=== PATIENT | male | born 1955 | race Caucasian/White ===

== ENCOUNTER 2018-01-17 19:08 | Inpatient (IN) | payer OTHER ==
[2018-01-17 19:58] LABS: ADD MAN DIFF? NO
[2018-01-17] MEDS: CEFTRIAXONE 2 GM/50 ML (PMX) 50 ML IVPB (20:01)
[2018-01-17 20:05] LABS: BASOPHILS % 0.2 % (0.0-2.0); EOSINOPHILS # 0.2 10^3/ul (0.0-0.5); EOSINOPHILS % 1.3 % (0.0-7.0); HEMATOCRIT 36.7 % (42.0-52.0); HEMOGLOBIN 12.1 g/dl (14.0-18.0); LYMPHOCYTES # 1.1 10^3/ul (0.8-2.9); MEAN CORPUSCULAR HEMOGLOBIN 30.1 pg (29.0-33.0); MEAN CORPUSCULAR VOLUME 91.3 fl (82.0-101.0); MEAN PLATELET VOLUME 8.6 fl (7.4-10.4); MONOCYTES % 8.5 % (0.0-11.0); NEUTROPHIL # 9.5 10^3/ul (1.6-7.5); NEUTROPHILS % 79.3 % (39.0-77.0); PLATELET COUNT 502 10^3/UL (140-415); RED BLOOD COUNT 4.02 10^6/ul (4.70-6.10); RED CELL DISTRIBUTION WIDTH 13.3 % (11.5-14.5)
[2018-01-17 20:05] LABS: WHITE BLOOD COUNT 12.1 10^3/ul (4.8-10.8)
[2018-01-17 20:24] LABS: ALANINE AMINOTRANSFERASE 40 IU/L (13-69); ALBUMIN 3.6 g/dl (3.3-4.9); ALKALINE PHOSPHATASE 72 IU/L (42-121); ANION GAP 12 (8-16); ASPARTATE AMINO TRANSFERASE 28 IU/L (15-46); BLOOD UREA NITROGEN 20 mg/dl (7-20); CALCIUM 8.9 mg/dl (8.4-10.2); CARBON DIOXIDE 29 mmol/L (21-31); CHLORIDE 97 mmol/L (97-110); CREATININE 0.84 mg/dl (0.61-1.24); GLUCOSE 137 mg/dl (70-220); INR 1.08; PROTIME 14.1 Sec (11.9-14.9); PT RATIO 1.1; SODIUM 133 mmol/L (135-144); TOTAL PROTEIN 7.2 g/dl (6.1-8.1)
[2018-01-17 20:25] LABS: PARTIAL THROMBOPLASTIN TIME 39.7 Sec (25.0-35.0)
[2018-01-17] MEDS: VANCOMYCIN 1 GM (PMX) 250 ML IVPB (20:45)
[2018-01-17] MEDS: ONDANSETRON 4 MG INJ IV (20:45)
[2018-01-17] MEDS: morphine 2 MG INJ IV (20:45)
[2018-01-17 20:51] LABS: LACTIC ACID 1.3 mmol/L (0.5-2.0)
[2018-01-17 21:11] LABS: ERYTHROCYTE SEDIMENTATION RATE 96 mm/Hr (0-20)
[2018-01-17] MEDS: HYDROmorphONE 1 MG/ML SYG IV (21:49)
[2018-01-17 22:28] LABS: LACTIC ACID 0.7 mmol/L (0.5-2.0)
[2018-01-17 23:05] LABS: ADD UMIC NO; UR ASCORBIC ACID NEGATIVE (NEGATIVE); UR BILIRUBIN (Dip) NEGATIVE (NEGATIVE); UR BLOOD (Dip) NEGATIVE (NEGATIVE); UR CLARITY CLEAR (CLEAR); UR COLOR YELLOW (YELLOW); UR GLUCOSE (Dip) NEGATIVE (NEGATIVE); UR KETONES (Dip) NEGATIVE (NEGATIVE); UR LEUKOCYTE ESTERASE (Dip) NEGATIVE Leu/ul (NEGATIVE); UR NITRITE (Dip) NEGATIVE (NEGATIVE); UR TOTAL PROTEIN (Dip) NEGATIVE (NEGATIVE); UR UROBILINOGEN (Dip) NEGATIVE (NEGATIVE)
[2018-01-18 06:16] LABS: LACTIC ACID 1.6 mmol/L (0.5-2.0)
[2018-01-18] MEDS ORDERED: VANCOMYCIN 750 MG in DEXTROSE 5% 150 ML IVPB (12:30)
[2018-01-18] MEDS: CEFTRIAXONE 1 GM/50 ML (PMX) 50 ML IVPB (12:48)
[2018-01-18] MEDS: CEFTRIAXONE 1 GM INJ IM (12:48)
[2018-01-18] MEDS: VANCOMYCIN 750 MG in SOD CHLORIDE 0.9% 150 ML IVPB (13:48)
[2018-01-18] MEDS: PROPOFOL 100 ML IV (16:00)
[2018-01-18] MEDS: LIDOCAINE 1% (MDV) 10 ML INJ INJ (16:45)
[2018-01-18 17:10] LABS: SYN FLD PMN % 94.3 % (0.0-25.0); SYN FLD WBC 48492 /cmm (0-150)
[2018-01-18] MEDS: KETOROLAC 15 MG INJ IV (17:16)
[2018-01-18] MEDS: FENTAnyl 50 MCG/ML VIAL IV (17:16)
[2018-01-18 17:37] LABS: FLUID GLUCOSE < 20 mg/dl; FLUID TOTAL PROTEIN 5.1 g/dl; FLUID TYPE FLUID
[2018-01-18] MEDS: OXYCODONE/ACETAMINOPHEN (5/325) TAB PO (17:54)
[2018-01-18 18:03] LABS: SYN FLD MN % 5.7 &
[2018-01-18 18:04] LABS: SYN FLD CLARITY CLOUDY; SYN FLD CRYSTALS NO CRYSTALS SEEN (None seen)
[2018-01-18 18:04] LABS: SYN FLD SOURCE LEFT KNEE
[2018-01-18 18:43] LABS: SYN FLD COLOR RED
[2018-01-18] MEDS ORDERED: ONDANSETRON 4 MG INJ IV (19:30)
[2018-01-18] MEDS ORDERED: VANCOMYCIN IV PER PHARMACY XX (19:30)
[2018-01-18] MEDS ORDERED: KETOROLAC 15 MG INJ IV (19:30)
[2018-01-18] MEDS ORDERED: NACL 0.9% 3 ML SYG IV (19:30)
[2018-01-18] MEDS: HYDROCODONE/APAP (5/325) TAB PO (21:49)
[2018-01-18] MEDS: SOD CHLORIDE 0.9% 1,000 ML IV (21:55)
[2018-01-19] MEDS: VANCOMYCIN 1.5 GM in SOD CHLORIDE 0.9% 250 ML IVPB ×3 (00:10→23:58)
[2018-01-19] MEDS: morphine 2 MG INJ IV ×2 (03:11→08:49)
[2018-01-19] MEDS ORDERED: ASPIRIN 81 MG TAB PO (04:30)
[2018-01-19] MEDS: HYDROCODONE/APAP (5/325) TAB PO ×3 (05:26→17:48)
[2018-01-19] MEDS: SOD CHLORIDE 0.9% 1,000 ML IV ×2 (05:30→16:26)
[2018-01-19 05:52] LABS: ADD MAN DIFF? NO
[2018-01-19 06:02] LABS: BASOPHILS % 0.2 % (0.0-2.0); EOSINOPHILS # 0.2 10^3/ul (0.0-0.5); EOSINOPHILS % 1.7 % (0.0-7.0); HEMATOCRIT 37.3 % (42.0-52.0); LYMPHOCYTES # 1.3 10^3/ul (0.8-2.9); LYMPHOCYTES % 12.4 % (15.0-51.0); MEAN CORPUSCULAR HEMOGLOBIN 29.4 pg (29.0-33.0); MEAN CORPUSCULAR HGB CONC 32.2 g/dl (32.0-37.0); MEAN CORPUSCULAR VOLUME 91.4 fl (82.0-101.0); MEAN PLATELET VOLUME 8.6 fl (7.4-10.4); MONOCYTES % 9.2 % (0.0-11.0); NEUTROPHIL # 8.1 10^3/ul (1.6-7.5); NEUTROPHILS % 75.4 % (39.0-77.0); PLATELET COUNT 542 10^3/UL (140-415); RED BLOOD COUNT 4.08 10^6/ul (4.70-6.10); RED CELL DISTRIBUTION WIDTH 13.2 % (11.5-14.5)
[2018-01-19 06:02] LABS: WHITE BLOOD COUNT 10.7 10^3/ul (4.8-10.8)
[2018-01-19 06:25] LABS: ANION GAP 10 (8-16); BLOOD UREA NITROGEN 18 mg/dl (7-20); CALCIUM 8.7 mg/dl (8.4-10.2); CARBON DIOXIDE 29 mmol/L (21-31); CHLORIDE 104 mmol/L (97-110); CREATININE 0.76 mg/dl (0.61-1.24); GLUCOSE 94 mg/dl (70-220); MAGNESIUM 2.2 mg/dl (1.7-2.5); PHOSPHORUS 4.3 mg/dl (2.5-4.9); POTASSIUM 4.7 mmol/L (3.5-5.1); SODIUM 138 mmol/L (135-144)
[2018-01-19 07:47] LABS: HEMOGLOBIN A1C 5.9 % (0-5.9)
[2018-01-19] MEDS: ASPIRIN 81 MG TAB PO (09:48)
[2018-01-19] MEDS: MELOXICAM 15 MG TAB PO (09:48)
[2018-01-19] MEDS: ENOXAPARIN 40 MG/0.4 ML SYG SC (09:49)
[2018-01-19] MEDS: DOCUSATE SODIUM 100 MG CAP PO (11:31)
[2018-01-19] MEDS: MAGNESIUM HYDROXIDE 30ML CUP PO (18:40)
[2018-01-20] MEDS: SOD CHLORIDE 0.9% 1,000 ML IV ×3 (01:30→21:30)
[2018-01-20] MEDS: HYDROCODONE/APAP (5/325) TAB PO ×2 (06:05→19:44)
[2018-01-20] MEDS: MELOXICAM 15 MG TAB PO (08:32)
[2018-01-20] MEDS: ASPIRIN 81 MG TAB PO (08:32)
[2018-01-20] MEDS: ENOXAPARIN 40 MG/0.4 ML SYG SC (08:33)
[2018-01-20] MEDS: MAGNESIUM HYDROXIDE 30ML CUP PO (08:39)
[2018-01-20] MEDS: morphine LIQ (10 MG/5 ML) CUP PO ×2 (08:39→15:29)
[2018-01-20 11:53] LABS: VANCOMYCIN,TROUGH 8.8 ug/ml (10.0-20.0)
[2018-01-20] MEDS: VANCOMYCIN 1.5 GM in SOD CHLORIDE 0.9% 250 ML IVPB (12:39)
[2018-01-20] MEDS: POLYETHYLENE GLYCOL 17 GM PACKET PO (12:52)
[2018-01-20] MEDS: SENNA TAB PO ×2 (12:52→22:08)
[2018-01-20] MEDS: DOCUSATE SODIUM 100 MG CAP PO ×2 (12:52→22:04)
[2018-01-20] MEDS: SOD CHLORIDE 0.9% 100 ML (17:00)
[2018-01-20] MEDS: LIDOCAINE 1% (MPF) 5 ML VIAL SC (18:15)
[2018-01-20] MEDS: VANCOMYCIN 1 GM 250 ML IVPB (22:04)
[2018-01-21] MEDS: VANCOMYCIN 1 GM 250 ML IVPB ×2 (05:11→12:58)
[2018-01-21 05:57] LABS: BLOOD UREA NITROGEN 15 mg/dl (7-20)
[2018-01-21 05:57] LABS: CREATININE 0.66 mg/dl (0.61-1.24)
[2018-01-21] MEDS: HYDROCODONE/APAP (5/325) TAB PO ×2 (06:12→20:33)
[2018-01-21] MEDS: SOD CHLORIDE 0.9% 1,000 ML IV ×2 (07:30→12:58)
[2018-01-21] MEDS: MELOXICAM 15 MG TAB PO (09:49)
[2018-01-21] MEDS: SENNA TAB PO ×2 (09:49→20:33)
[2018-01-21] MEDS: ASPIRIN 81 MG TAB PO (09:49)
[2018-01-21] MEDS: POLYETHYLENE GLYCOL 17 GM PACKET PO (09:49)
[2018-01-21] MEDS: DOCUSATE SODIUM 100 MG CAP PO ×2 (09:49→20:33)
[2018-01-21] MEDS: ENOXAPARIN 40 MG/0.4 ML SYG SC (09:50)
[2018-01-21] MEDS: CEFTRIAXONE 1 GM/50 ML (PMX) 50 ML IVPB (15:20)
[2018-01-22] MEDS: SOD CHLORIDE 0.9% 1,000 ML IV (03:23)
[2018-01-22] MEDS: ASPIRIN 81 MG TAB PO (08:31)
[2018-01-22] MEDS: SENNA TAB PO ×2 (08:31→20:23)
[2018-01-22] MEDS: DOCUSATE SODIUM 100 MG CAP PO ×2 (08:31→20:22)
[2018-01-22] MEDS: POLYETHYLENE GLYCOL 17 GM PACKET PO (08:31)
[2018-01-22] MEDS: ENOXAPARIN 40 MG/0.4 ML SYG SC (08:31)
[2018-01-22] MEDS: MELOXICAM 15 MG TAB PO (08:31)
[2018-01-22] MEDS: HYDROCODONE/APAP (5/325) TAB PO (08:34)
[2018-01-22] MEDS: morphine LIQ (10 MG/5 ML) CUP PO (13:59)
[2018-01-22] MEDS: CEFTRIAXONE 1 GM/50 ML (PMX) 50 ML IVPB (14:00)
[2018-01-23] MEDS: HYDROCODONE/APAP (5/325) TAB PO ×4 (02:59→23:28)
[2018-01-23] MEDS: MELOXICAM 15 MG TAB PO (08:16)
[2018-01-23] MEDS: DOCUSATE SODIUM 100 MG CAP PO ×2 (08:16→20:37)
[2018-01-23] MEDS: SENNA TAB PO ×2 (08:16→20:37)
[2018-01-23] MEDS: ASPIRIN 81 MG TAB PO (08:16)
[2018-01-23] MEDS: POLYETHYLENE GLYCOL 17 GM PACKET PO (08:16)
[2018-01-23] MEDS: ENOXAPARIN 40 MG/0.4 ML SYG SC (08:17)
[2018-01-23] MEDS: CEFTRIAXONE 2 GM/50 ML (PMX) 100 ML IVPB (15:23)
[2018-01-24] MEDS: MELOXICAM 15 MG TAB PO (08:31)
[2018-01-24] MEDS: ENOXAPARIN 40 MG/0.4 ML SYG SC (08:31)
[2018-01-24] MEDS: DOCUSATE SODIUM 100 MG CAP PO ×2 (08:31→20:20)
[2018-01-24] MEDS: SENNA TAB PO ×2 (08:31→20:21)
[2018-01-24] MEDS: ASPIRIN 81 MG TAB PO (08:31)
[2018-01-24] MEDS: HYDROCODONE/APAP (5/325) TAB PO ×2 (08:32→20:20)
[2018-01-24] MEDS: POLYETHYLENE GLYCOL 17 GM PACKET PO (08:32)
[2018-01-24] MEDS: morphine LIQ (10 MG/5 ML) CUP PO (12:23)
[2018-01-24] MEDS: CEFTRIAXONE 2 GM/50 ML (PMX) 100 ML IVPB (14:07)
[2018-01-25] MEDS: HYDROCODONE/APAP (5/325) TAB PO ×3 (07:45→21:14)
[2018-01-25] MEDS: ASPIRIN 81 MG TAB PO (08:03)
[2018-01-25] MEDS: POLYETHYLENE GLYCOL 17 GM PACKET PO (08:03)
[2018-01-25] MEDS: MELOXICAM 15 MG TAB PO (08:03)
[2018-01-25] MEDS: SENNA TAB PO ×2 (08:03→21:14)
[2018-01-25] MEDS: DOCUSATE SODIUM 100 MG CAP PO ×2 (08:04→21:00)
[2018-01-25] MEDS: ENOXAPARIN 40 MG/0.4 ML SYG SC (08:04)
[2018-01-25] MEDS: CEFTRIAXONE 2 GM/50 ML (PMX) 100 ML IVPB (14:47)
[2018-01-26] MEDS: HYDROCODONE/APAP (5/325) TAB PO ×3 (03:45→20:17)
[2018-01-26] MEDS: ASPIRIN 81 MG TAB PO (08:30)
[2018-01-26] MEDS: SENNA TAB PO ×2 (08:30→20:17)
[2018-01-26] MEDS: DOCUSATE SODIUM 100 MG CAP PO ×2 (08:30→20:17)
[2018-01-26] MEDS: POLYETHYLENE GLYCOL 17 GM PACKET PO (08:30)
[2018-01-26] MEDS: MELOXICAM 15 MG TAB PO (08:30)
[2018-01-26] MEDS: ENOXAPARIN 40 MG/0.4 ML SYG SC (08:32)
[2018-01-26] MEDS: CEFTRIAXONE 2 GM/50 ML (PMX) 100 ML IVPB (14:12)
[2018-01-27] MEDS: DOCUSATE SODIUM 100 MG CAP PO ×2 (09:00→21:00)
[2018-01-27] MEDS: ASPIRIN 81 MG TAB PO (09:42)
[2018-01-27] MEDS: POLYETHYLENE GLYCOL 17 GM PACKET PO (09:42)
[2018-01-27] MEDS: SENNA TAB PO ×2 (09:42→21:00)
[2018-01-27] MEDS: MELOXICAM 15 MG TAB PO (09:42)
[2018-01-27] MEDS: ENOXAPARIN 40 MG/0.4 ML SYG SC (09:44)
[2018-01-27] MEDS: CEFTRIAXONE 2 GM/50 ML (PMX) 100 ML IVPB (16:26)
[2018-01-28] MEDS: HYDROCODONE/APAP (5/325) TAB PO ×2 (02:53→15:05)
[2018-01-28] MEDS: POLYETHYLENE GLYCOL 17 GM PACKET PO ×2 (09:00→09:24)
[2018-01-28] MEDS: SENNA TAB PO ×3 (09:00→20:18)
[2018-01-28] MEDS: DOCUSATE SODIUM 100 MG CAP PO ×3 (09:00→20:18)
[2018-01-28] MEDS: MELOXICAM 15 MG TAB PO (09:25)
[2018-01-28] MEDS: ASPIRIN 81 MG TAB PO (09:25)
[2018-01-28] MEDS: ENOXAPARIN 40 MG/0.4 ML SYG SC (09:26)
[2018-01-28] MEDS: CEFTRIAXONE 2 GM/50 ML (PMX) 100 ML IVPB (15:05)
[2018-01-29] MEDS: HYDROCODONE/APAP (5/325) TAB PO ×2 (00:20→16:32)
[2018-01-29] MEDS: SENNA TAB PO ×2 (09:00→20:40)
[2018-01-29] MEDS: POLYETHYLENE GLYCOL 17 GM PACKET PO (09:01)
[2018-01-29] MEDS: ASPIRIN 81 MG TAB PO (09:01)
[2018-01-29] MEDS: DOCUSATE SODIUM 100 MG CAP PO ×2 (09:01→20:41)
[2018-01-29] MEDS: ENOXAPARIN 40 MG/0.4 ML SYG SC (09:01)
[2018-01-29] MEDS: MELOXICAM 15 MG TAB PO (09:01)
[2018-01-29] MEDS: CEFTRIAXONE 2 GM/50 ML (PMX) 100 ML IVPB (15:31)
[2018-01-30 05:31] LABS: ADD MAN DIFF? NO
[2018-01-30 05:46] LABS: WHITE BLOOD COUNT 9.5 10^3/ul (4.8-10.8)
[2018-01-30 05:46] LABS: BASOPHIL # 0.1 10^3/ul (0.0-0.1); BASOPHILS % 0.5 % (0.0-2.0); EOSINOPHILS # 0.3 10^3/ul (0.0-0.5); EOSINOPHILS % 3.2 % (0.0-7.0); HEMATOCRIT 38.2 % (42.0-52.0); HEMOGLOBIN 12.1 g/dl (14.0-18.0); LYMPHOCYTES # 1.6 10^3/ul (0.8-2.9); LYMPHOCYTES % 16.7 % (15.0-51.0); MEAN CORPUSCULAR HEMOGLOBIN 28.9 pg (29.0-33.0); MEAN CORPUSCULAR HGB CONC 31.7 g/dl (32.0-37.0); MEAN CORPUSCULAR VOLUME 91.2 fl (82.0-101.0); MEAN PLATELET VOLUME 8.9 fl (7.4-10.4); MONOCYTE # 1.1 10^3/ul (0.3-0.9); NEUTROPHIL # 6.3 10^3/ul (1.6-7.5); NEUTROPHILS % 67.1 % (39.0-77.0); PLATELET COUNT 368 10^3/UL (140-415); RED BLOOD COUNT 4.19 10^6/ul (4.70-6.10); RED CELL DISTRIBUTION WIDTH 13.1 % (11.5-14.5)
[2018-01-30 06:19] LABS: ANION GAP 10 (8-16); BLOOD UREA NITROGEN 13 mg/dl (7-20); CALCIUM 9.2 mg/dl (8.4-10.2); CARBON DIOXIDE 31 mmol/L (21-31); CHLORIDE 99 mmol/L (97-110); CREATININE 0.68 mg/dl (0.61-1.24); GLUCOSE 100 mg/dl (70-220); PHOSPHORUS 3.9 mg/dl (2.5-4.9); POTASSIUM 4.4 mmol/L (3.5-5.1); SODIUM 136 mmol/L (135-144)
[2018-01-30] MEDS: POLYETHYLENE GLYCOL 17 GM PACKET PO (08:31)
[2018-01-30] MEDS: DOCUSATE SODIUM 100 MG CAP PO ×2 (08:31→20:58)
[2018-01-30] MEDS: MELOXICAM 15 MG TAB PO (08:31)
[2018-01-30] MEDS: ASPIRIN 81 MG TAB PO (08:31)
[2018-01-30] MEDS: SENNA TAB PO ×2 (08:31→20:58)
[2018-01-30] MEDS: ENOXAPARIN 40 MG/0.4 ML SYG SC (08:32)
[2018-01-30] MEDS: HYDROCODONE/APAP (5/325) TAB PO (15:08)
[2018-01-30] MEDS: CEFTRIAXONE 2 GM/50 ML (PMX) 100 ML IVPB (15:09)
[2018-01-31 06:00] LABS: ADD MAN DIFF? NO
[2018-01-31 06:04] LABS: WHITE BLOOD COUNT 9.9 10^3/ul (4.8-10.8)
[2018-01-31 06:04] LABS: BASOPHIL # 0.1 10^3/ul (0.0-0.1); BASOPHILS % 0.6 % (0.0-2.0); EOSINOPHILS # 0.4 10^3/ul (0.0-0.5); EOSINOPHILS % 3.6 % (0.0-7.0); HEMATOCRIT 37.3 % (42.0-52.0); HEMOGLOBIN 12.2 g/dl (14.0-18.0); LYMPHOCYTES # 1.8 10^3/ul (0.8-2.9); LYMPHOCYTES % 17.8 % (15.0-51.0); MEAN CORPUSCULAR HGB CONC 32.7 g/dl (32.0-37.0); MEAN CORPUSCULAR VOLUME 91.6 fl (82.0-101.0); MEAN PLATELET VOLUME 9.3 fl (7.4-10.4); MONOCYTE # 1.1 10^3/ul (0.3-0.9); MONOCYTES % 11.2 % (0.0-11.0); NEUTROPHIL # 6.5 10^3/ul (1.6-7.5); NEUTROPHILS % 66.3 % (39.0-77.0); PLATELET COUNT 382 10^3/UL (140-415); RED BLOOD COUNT 4.07 10^6/ul (4.70-6.10)
[2018-01-31] MEDS: HYDROCODONE/APAP (5/325) TAB PO (06:18)
[2018-01-31 06:33] LABS: ANION GAP 12 (8-16); BLOOD UREA NITROGEN 16 mg/dl (7-20); CARBON DIOXIDE 28 mmol/L (21-31); CHLORIDE 100 mmol/L (97-110); CREATININE 0.63 mg/dl (0.61-1.24); GLUCOSE 95 mg/dl (70-220); PHOSPHORUS 3.6 mg/dl (2.5-4.9); POTASSIUM 4.5 mmol/L (3.5-5.1); SODIUM 135 mmol/L (135-144)
[2018-01-31] MEDS: DOCUSATE SODIUM 100 MG CAP PO ×2 (09:06→20:00)
[2018-01-31] MEDS: POLYETHYLENE GLYCOL 17 GM PACKET PO (09:06)
[2018-01-31] MEDS: MELOXICAM 15 MG TAB PO (09:06)
[2018-01-31] MEDS: ASPIRIN 81 MG TAB PO (09:06)
[2018-01-31] MEDS: SENNA TAB PO ×2 (09:06→20:00)
[2018-01-31] MEDS: ENOXAPARIN 40 MG/0.4 ML SYG SC (09:07)
[2018-01-31] MEDS: CEFTRIAXONE 2 GM/50 ML (PMX) 100 ML IVPB (15:55)
[2018-02-01] MEDS: DOCUSATE SODIUM 100 MG CAP PO ×2 (08:48→20:32)
[2018-02-01] MEDS: ASPIRIN 81 MG TAB PO (08:48)
[2018-02-01] MEDS: SENNA TAB PO ×2 (08:48→20:32)
[2018-02-01] MEDS: MELOXICAM 15 MG TAB PO (08:49)
[2018-02-01] MEDS: ENOXAPARIN 40 MG/0.4 ML SYG SC (08:49)
[2018-02-01] MEDS: POLYETHYLENE GLYCOL 17 GM PACKET PO (08:49)
[2018-02-01] MEDS: CEFTRIAXONE 2 GM/50 ML (PMX) 100 ML IVPB (14:29)
[2018-02-01] MEDS: HYDROCODONE/APAP (5/325) TAB PO (19:48)
[2018-02-01] MEDS: morphine LIQ (10 MG/5 ML) CUP PO (22:50)
[2018-02-02] MEDS: POLYETHYLENE GLYCOL 17 GM PACKET PO (09:11)
[2018-02-02] MEDS: DOCUSATE SODIUM 100 MG CAP PO ×2 (09:11→21:29)
[2018-02-02] MEDS: ENOXAPARIN 40 MG/0.4 ML SYG SC (09:11)
[2018-02-02] MEDS: MELOXICAM 15 MG TAB PO (09:11)
[2018-02-02] MEDS: SENNA TAB PO ×2 (09:11→21:28)
[2018-02-02] MEDS: ASPIRIN 81 MG TAB PO (09:11)
[2018-02-02] MEDS: CEFTRIAXONE 2 GM/50 ML (PMX) 100 ML IVPB (15:38)
[2018-02-02] MEDS: HYDROCODONE/APAP (5/325) TAB PO (15:39)
[2018-02-02] MEDS: morphine LIQ (10 MG/5 ML) CUP PO ×2 (16:01→20:22)
[2018-02-03] MEDS: HYDROCODONE/APAP (5/325) TAB PO ×2 (02:21→21:20)
[2018-02-03] MEDS: MELOXICAM 15 MG TAB PO (08:34)
[2018-02-03] MEDS: DOCUSATE SODIUM 100 MG CAP PO ×2 (08:34→21:13)
[2018-02-03] MEDS: SENNA TAB PO ×2 (08:34→21:12)
[2018-02-03] MEDS: ASPIRIN 81 MG TAB PO (08:34)
[2018-02-03] MEDS: POLYETHYLENE GLYCOL 17 GM PACKET PO (08:34)
[2018-02-03] MEDS: ENOXAPARIN 40 MG/0.4 ML SYG SC (08:35)
[2018-02-03] MEDS: CEFTRIAXONE 2 GM/50 ML (PMX) 100 ML IVPB (15:29)
[2018-02-04] MEDS: MELOXICAM 15 MG TAB PO (08:48)
[2018-02-04] MEDS: SENNA TAB PO ×2 (08:48→21:06)
[2018-02-04] MEDS: POLYETHYLENE GLYCOL 17 GM PACKET PO (08:48)
[2018-02-04] MEDS: ASPIRIN 81 MG TAB PO (08:48)
[2018-02-04] MEDS: DOCUSATE SODIUM 100 MG CAP PO ×2 (08:48→21:06)
[2018-02-04] MEDS: ENOXAPARIN 40 MG/0.4 ML SYG SC (08:49)
[2018-02-04] MEDS: CEFTRIAXONE 2 GM/50 ML (PMX) 100 ML IVPB (16:17)
[2018-02-05] MEDS: ENOXAPARIN 40 MG/0.4 ML SYG SC (08:29)
[2018-02-05] MEDS: SENNA TAB PO ×2 (08:32→21:00)
[2018-02-05] MEDS: MELOXICAM 15 MG TAB PO (08:32)
[2018-02-05] MEDS: POLYETHYLENE GLYCOL 17 GM PACKET PO (08:32)
[2018-02-05] MEDS: DOCUSATE SODIUM 100 MG CAP PO ×2 (08:33→21:00)
[2018-02-05] MEDS: ASPIRIN 81 MG TAB PO (08:33)
[2018-02-05] MEDS: CEFTRIAXONE 2 GM/50 ML (PMX) 100 ML IVPB (15:11)
[2018-02-06] MEDS: MELOXICAM 15 MG TAB PO (08:13)
[2018-02-06] MEDS: DOCUSATE SODIUM 100 MG CAP PO ×2 (08:13→20:47)
[2018-02-06] MEDS: ASPIRIN 81 MG TAB PO (08:13)
[2018-02-06] MEDS: SENNA TAB PO ×2 (08:13→20:47)
[2018-02-06] MEDS: POLYETHYLENE GLYCOL 17 GM PACKET PO (08:14)
[2018-02-06] MEDS: ENOXAPARIN 40 MG/0.4 ML SYG SC (08:14)
[2018-02-06] MEDS: CEFTRIAXONE 2 GM/50 ML (PMX) 100 ML IVPB (14:42)
[2018-02-07 06:42] LABS: ADD MAN DIFF? NO
[2018-02-07 06:45] LABS: WHITE BLOOD COUNT 7.1 10^3/ul (4.8-10.8)
[2018-02-07 06:45] LABS: BASOPHIL # 0.1 10^3/ul (0.0-0.1); BASOPHILS % 0.7 % (0.0-2.0); EOSINOPHILS # 0.4 10^3/ul (0.0-0.5); EOSINOPHILS % 6.2 % (0.0-7.0); HEMATOCRIT 33.6 % (42.0-52.0); HEMOGLOBIN 10.9 g/dl (14.0-18.0); LYMPHOCYTES # 1.2 10^3/ul (0.8-2.9); LYMPHOCYTES % 16.2 % (15.0-51.0); MEAN CORPUSCULAR HEMOGLOBIN 29.5 pg (29.0-33.0); MEAN CORPUSCULAR HGB CONC 32.4 g/dl (32.0-37.0); MEAN CORPUSCULAR VOLUME 91.1 fl (82.0-101.0); MONOCYTE # 1.3 10^3/ul (0.3-0.9); MONOCYTES % 18.2 % (0.0-11.0); NEUTROPHIL # 4.2 10^3/ul (1.6-7.5); NEUTROPHILS % 58.6 % (39.0-77.0); PLATELET COUNT 343 10^3/UL (140-415); RED BLOOD COUNT 3.69 10^6/ul (4.70-6.10); RED CELL DISTRIBUTION WIDTH 13.1 % (11.5-14.5)
[2018-02-07 07:09] LABS: ANION GAP 10 (8-16); BLOOD UREA NITROGEN 11 mg/dl (7-20); CALCIUM 9.1 mg/dl (8.4-10.2); CARBON DIOXIDE 29 mmol/L (21-31); CHLORIDE 99 mmol/L (97-110); CREATININE 0.57 mg/dl (0.61-1.24); GLUCOSE 95 mg/dl (70-220); MAGNESIUM 1.9 mg/dl (1.7-2.5); PHOSPHORUS 3.9 mg/dl (2.5-4.9); POTASSIUM 4.6 mmol/L (3.5-5.1); SODIUM 133 mmol/L (135-144)
[2018-02-07] MEDS: POLYETHYLENE GLYCOL 17 GM PACKET PO (08:53)
[2018-02-07] MEDS: MELOXICAM 15 MG TAB PO (08:53)
[2018-02-07] MEDS: DOCUSATE SODIUM 100 MG CAP PO ×2 (08:53→20:31)
[2018-02-07] MEDS: ASPIRIN 81 MG TAB PO (08:53)
[2018-02-07] MEDS: SENNA TAB PO ×2 (08:53→20:31)
[2018-02-07] MEDS: ENOXAPARIN 40 MG/0.4 ML SYG SC (08:57)
[2018-02-07] MEDS: HYDROCODONE/APAP (5/325) TAB PO ×2 (10:23→20:31)
[2018-02-07] MEDS: CEFTRIAXONE 2 GM/50 ML (PMX) 100 ML IVPB (15:27)
[2018-02-08 05:36] LABS: ADD MAN DIFF? NO
[2018-02-08 05:43] LABS: BASOPHIL # 0.1 10^3/ul (0.0-0.1); BASOPHILS % 0.8 % (0.0-2.0); EOSINOPHILS # 0.5 10^3/ul (0.0-0.5); EOSINOPHILS % 8.2 % (0.0-7.0); HEMATOCRIT 33.7 % (42.0-52.0); HEMOGLOBIN 10.8 g/dl (14.0-18.0); LYMPHOCYTES % 16.6 % (15.0-51.0); MEAN CORPUSCULAR HEMOGLOBIN 28.7 pg (29.0-33.0); MEAN CORPUSCULAR VOLUME 89.6 fl (82.0-101.0); MEAN PLATELET VOLUME 8.9 fl (7.4-10.4); MONOCYTE # 1.3 10^3/ul (0.3-0.9); NEUTROPHIL # 3.3 10^3/ul (1.6-7.5); NEUTROPHILS % 53.2 % (39.0-77.0); PLATELET COUNT 338 10^3/UL (140-415); RED BLOOD COUNT 3.76 10^6/ul (4.70-6.10); RED CELL DISTRIBUTION WIDTH 13.2 % (11.5-14.5)
[2018-02-08 05:43] LABS: WHITE BLOOD COUNT 6.1 10^3/ul (4.8-10.8)
[2018-02-08 06:20] LABS: ALBUMIN 3.6 g/dl (3.3-4.9); ANION GAP 13 (8-16); BLOOD UREA NITROGEN 14 mg/dl (7-20); CALCIUM 9.2 mg/dl (8.4-10.2); CARBON DIOXIDE 29 mmol/L (21-31); CHLORIDE 97 mmol/L (97-110); CREATININE 0.66 mg/dl (0.61-1.24); GLUCOSE 96 mg/dl (70-220); MAGNESIUM 1.9 mg/dl (1.7-2.5); PHOSPHORUS 4.1 mg/dl (2.5-4.9); POTASSIUM 4.5 mmol/L (3.5-5.1); SODIUM 134 mmol/L (135-144)
[2018-02-08] MEDS: POLYETHYLENE GLYCOL 17 GM PACKET PO (08:49)
[2018-02-08] MEDS: SENNA TAB PO ×2 (08:49→20:30)
[2018-02-08] MEDS: ASPIRIN 81 MG TAB PO (08:49)
[2018-02-08] MEDS: MELOXICAM 15 MG TAB PO (08:49)
[2018-02-08] MEDS: HYDROCODONE/APAP (5/325) TAB PO ×2 (08:50→20:31)
[2018-02-08] MEDS: ENOXAPARIN 40 MG/0.4 ML SYG SC (08:52)
[2018-02-08] MEDS: DOCUSATE SODIUM 100 MG CAP PO ×2 (08:53→20:31)
[2018-02-08] MEDS: CEFTRIAXONE 2 GM/50 ML (PMX) 100 ML IVPB (14:12)
[2018-02-08] MEDS: morphine LIQ (10 MG/5 ML) CUP PO (21:40)
[2018-02-09] MEDS: morphine LIQ (10 MG/5 ML) CUP PO ×2 (02:01→06:16)
[2018-02-09] MEDS: HYDROCODONE/APAP (5/325) TAB PO ×2 (05:03→22:54)
[2018-02-09 06:48] LABS: ADD MAN DIFF? NO
[2018-02-09 06:51] LABS: WHITE BLOOD COUNT 6.1 10^3/ul (4.8-10.8)
[2018-02-09 06:51] LABS: BASOPHIL # 0.1 10^3/ul (0.0-0.1); BASOPHILS % 0.8 % (0.0-2.0); EOSINOPHILS # 0.5 10^3/ul (0.0-0.5); EOSINOPHILS % 8.3 % (0.0-7.0); HEMATOCRIT 33.3 % (42.0-52.0); HEMOGLOBIN 10.7 g/dl (14.0-18.0); LYMPHOCYTES # 1.2 10^3/ul (0.8-2.9); LYMPHOCYTES % 19.8 % (15.0-51.0); MEAN CORPUSCULAR HEMOGLOBIN 28.8 pg (29.0-33.0); MEAN CORPUSCULAR HGB CONC 32.1 g/dl (32.0-37.0); MEAN CORPUSCULAR VOLUME 89.5 fl (82.0-101.0); MEAN PLATELET VOLUME 9.3 fl (7.4-10.4); MONOCYTE # 1.3 10^3/ul (0.3-0.9); MONOCYTES % 21.8 % (0.0-11.0); PLATELET COUNT 348 10^3/UL (140-415); RED BLOOD COUNT 3.72 10^6/ul (4.70-6.10); RED CELL DISTRIBUTION WIDTH 13.2 % (11.5-14.5)
[2018-02-09 07:19] LABS: ALBUMIN 3.7 g/dl (3.3-4.9); ANION GAP 9 (8-16); BLOOD UREA NITROGEN 15 mg/dl (7-20); CALCIUM 9.2 mg/dl (8.4-10.2); CARBON DIOXIDE 31 mmol/L (21-31); CHLORIDE 100 mmol/L (97-110); CREATININE 0.71 mg/dl (0.61-1.24); GLUCOSE 92 mg/dl (70-220); MAGNESIUM 1.9 mg/dl (1.7-2.5); PHOSPHORUS 4.2 mg/dl (2.5-4.9); POTASSIUM 4.4 mmol/L (3.5-5.1); SODIUM 136 mmol/L (135-144)
[2018-02-09] MEDS: DOCUSATE SODIUM 100 MG CAP PO ×2 (08:58→20:45)
[2018-02-09] MEDS: MELOXICAM 15 MG TAB PO (08:59)
[2018-02-09] MEDS: ASPIRIN 81 MG TAB PO (08:59)
[2018-02-09] MEDS: SENNA TAB PO ×2 (08:59→20:45)
[2018-02-09] MEDS: ENOXAPARIN 40 MG/0.4 ML SYG SC (09:00)
[2018-02-09] MEDS: POLYETHYLENE GLYCOL 17 GM PACKET PO (09:08)
[2018-02-09] MEDS: CEFTRIAXONE 2 GM/50 ML (PMX) 100 ML IVPB (15:44)
[2018-02-10 05:23] LABS: ADD MAN DIFF? NO
[2018-02-10 05:25] LABS: WHITE BLOOD COUNT 6.3 10^3/ul (4.8-10.8)
[2018-02-10 05:25] LABS: BASOPHILS % 0.6 % (0.0-2.0); EOSINOPHILS # 0.5 10^3/ul (0.0-0.5); EOSINOPHILS % 7.8 % (0.0-7.0); HEMATOCRIT 31.9 % (42.0-52.0); HEMOGLOBIN 10.3 g/dl (14.0-18.0); LYMPHOCYTES # 1.3 10^3/ul (0.8-2.9); LYMPHOCYTES % 19.8 % (15.0-51.0); MEAN CORPUSCULAR HEMOGLOBIN 29.4 pg (29.0-33.0); MEAN CORPUSCULAR HGB CONC 32.3 g/dl (32.0-37.0); MEAN CORPUSCULAR VOLUME 91.1 fl (82.0-101.0); MEAN PLATELET VOLUME 8.7 fl (7.4-10.4); MONOCYTE # 1.3 10^3/ul (0.3-0.9); MONOCYTES % 20.6 % (0.0-11.0); NEUTROPHIL # 3.2 10^3/ul (1.6-7.5); NEUTROPHILS % 50.9 % (39.0-77.0); PLATELET COUNT 328 10^3/UL (140-415); RED CELL DISTRIBUTION WIDTH 13.3 % (11.5-14.5)
[2018-02-10 05:54] LABS: ALBUMIN 3.4 g/dl (3.3-4.9); ANION GAP 11 (8-16); BLOOD UREA NITROGEN 16 mg/dl (7-20); CALCIUM 8.9 mg/dl (8.4-10.2); CARBON DIOXIDE 30 mmol/L (21-31); CHLORIDE 100 mmol/L (97-110); CREATININE 0.68 mg/dl (0.61-1.24); GLUCOSE 104 mg/dl (70-220); PHOSPHORUS 4.2 mg/dl (2.5-4.9); POTASSIUM 4.5 mmol/L (3.5-5.1); SODIUM 136 mmol/L (135-144)
[2018-02-10] MEDS: MELOXICAM 15 MG TAB PO (08:39)
[2018-02-10] MEDS: SENNA TAB PO ×2 (08:39→20:38)
[2018-02-10] MEDS: POLYETHYLENE GLYCOL 17 GM PACKET PO (08:39)
[2018-02-10] MEDS: ASPIRIN 81 MG TAB PO (08:39)
[2018-02-10] MEDS: HYDROCODONE/APAP (5/325) TAB PO (08:40)
[2018-02-10] MEDS: DOCUSATE SODIUM 100 MG CAP PO ×2 (08:42→20:38)
[2018-02-10] MEDS: ENOXAPARIN 40 MG/0.4 ML SYG SC (08:42)
[2018-02-10] MEDS: CEFTRIAXONE 2 GM/50 ML (PMX) 50 ML IVPB (15:35)
[2018-02-11] MEDS: ENOXAPARIN 40 MG/0.4 ML SYG SC (08:13)
[2018-02-11] MEDS: MELOXICAM 15 MG TAB PO (08:15)
[2018-02-11] MEDS: SENNA TAB PO ×2 (08:15→20:12)
[2018-02-11] MEDS: POLYETHYLENE GLYCOL 17 GM PACKET PO (08:15)
[2018-02-11] MEDS: ASPIRIN 81 MG TAB PO (08:15)
[2018-02-11] MEDS: DOCUSATE SODIUM 100 MG CAP PO ×2 (08:15→20:12)
[2018-02-11] MEDS: HYDROCODONE/APAP (5/325) TAB PO (09:58)
[2018-02-11] MEDS: morphine LIQ (10 MG/5 ML) CUP PO (11:08)
[2018-02-11] MEDS: CEFTRIAXONE 2 GM/50 ML (PMX) 50 ML IVPB (15:23)
[2018-02-12] MEDS: POLYETHYLENE GLYCOL 17 GM PACKET PO ×2 (09:00→09:29)
[2018-02-12] MEDS: DOCUSATE SODIUM 100 MG CAP PO ×3 (09:00→20:36)
[2018-02-12] MEDS: SENNA TAB PO ×3 (09:00→20:35)
[2018-02-12] MEDS: MELOXICAM 15 MG TAB PO (09:29)
[2018-02-12] MEDS: ASPIRIN 81 MG TAB PO (09:29)
[2018-02-12] MEDS: ENOXAPARIN 40 MG/0.4 ML SYG SC (09:30)
[2018-02-12] MEDS: CEFTRIAXONE 2 GM/50 ML (PMX) 50 ML IVPB (15:19)
[2018-02-13] MEDS: ASPIRIN 81 MG TAB PO (08:29)
[2018-02-13] MEDS: DOCUSATE SODIUM 100 MG CAP PO ×2 (08:29→20:18)
[2018-02-13] MEDS: SENNA TAB PO ×2 (08:29→20:18)
[2018-02-13] MEDS: POLYETHYLENE GLYCOL 17 GM PACKET PO (08:29)
[2018-02-13] MEDS: MELOXICAM 15 MG TAB PO (08:29)
[2018-02-13] MEDS: ENOXAPARIN 40 MG/0.4 ML SYG SC (08:30)
[2018-02-13] MEDS: CEFTRIAXONE 2 GM/50 ML (PMX) 50 ML IVPB (15:43)
[2018-02-14 05:25] LABS: ADD MAN DIFF? NO
[2018-02-14 05:29] LABS: ABNORMAL IP MESSAGE 1; BASOPHIL # 0.1 10^3/ul (0.0-0.1); BASOPHILS % 1.8 % (0.0-2.0); EOSINOPHILS # 0.4 10^3/ul (0.0-0.5); EOSINOPHILS % 11.5 % (0.0-7.0); HEMATOCRIT 34.3 % (42.0-52.0); IMMATURE GRANS #M 0.01 10^3/ul; IMMATURE GRANS % (M) 0.3 %; LYMPHOCYTES # 1.2 10^3/ul (0.8-2.9); MEAN CORPUSCULAR HEMOGLOBIN 28.8 pg (29.0-33.0); MEAN CORPUSCULAR HGB CONC 32.1 g/dl (32.0-37.0); MEAN CORPUSCULAR VOLUME 89.8 fl (82.0-101.0); MEAN PLATELET VOLUME 9.1 fl (7.4-10.4); MONOCYTE # 1.2 10^3/ul (0.3-0.9); MONOCYTES % 31.8 % (0.0-11.0); NEUTROPHIL # 0.9 10^3/ul (1.6-7.5); NEUTROPHILS % 22.6 % (39.0-77.0); PLATELET COUNT 364 10^3/UL (140-415); POSITIVE DIFF @See below; RED BLOOD COUNT 3.82 10^6/ul (4.70-6.10); RED CELL DISTRIBUTION WIDTH 13.4 % (11.5-14.5)
[2018-02-14 05:29] LABS: WHITE BLOOD COUNT 3.8 10^3/ul (4.8-10.8)
[2018-02-14 06:03] LABS: ALBUMIN 3.6 g/dl (3.3-4.9); ANION GAP 13 (8-16); BLOOD UREA NITROGEN 16 mg/dl (7-20); CALCIUM 9.2 mg/dl (8.4-10.2); CARBON DIOXIDE 28 mmol/L (21-31); CHLORIDE 101 mmol/L (97-110); CREATININE 0.65 mg/dl (0.61-1.24); GLUCOSE 98 mg/dl (70-220); POTASSIUM 4.5 mmol/L (3.5-5.1); SODIUM 137 mmol/L (135-144)
[2018-02-14] MEDS: SENNA TAB PO ×2 (08:39→20:50)
[2018-02-14] MEDS: ENOXAPARIN 40 MG/0.4 ML SYG SC (08:39)
[2018-02-14] MEDS: POLYETHYLENE GLYCOL 17 GM PACKET PO (08:39)
[2018-02-14] MEDS: ASPIRIN 81 MG TAB PO (08:39)
[2018-02-14] MEDS: MELOXICAM 15 MG TAB PO (08:40)
[2018-02-14] MEDS: DOCUSATE SODIUM 100 MG CAP PO ×2 (08:40→20:50)
[2018-02-14] MEDS: CEFTRIAXONE 2 GM/50 ML (PMX) 50 ML IVPB (15:34)
[2018-02-15] MEDS: POLYETHYLENE GLYCOL 17 GM PACKET PO (08:42)
[2018-02-15] MEDS: MELOXICAM 15 MG TAB PO (08:42)
[2018-02-15] MEDS: ENOXAPARIN 40 MG/0.4 ML SYG SC (08:42)
[2018-02-15] MEDS: DOCUSATE SODIUM 100 MG CAP PO ×2 (08:42→20:17)
[2018-02-15] MEDS: SENNA TAB PO ×2 (08:42→20:17)
[2018-02-15] MEDS: ASPIRIN 81 MG TAB PO (08:43)
[2018-02-15] MEDS: HYDROCODONE/APAP (5/325) TAB PO (12:39)
[2018-02-15] MEDS: CEFTRIAXONE 2 GM/50 ML (PMX) 50 ML IVPB (15:47)
[2018-02-16] MEDS: ENOXAPARIN 40 MG/0.4 ML SYG SC (08:57)
[2018-02-16] MEDS: ASPIRIN 81 MG TAB PO (08:58)
[2018-02-16] MEDS: DOCUSATE SODIUM 100 MG CAP PO ×2 (08:58→21:00)
[2018-02-16] MEDS: POLYETHYLENE GLYCOL 17 GM PACKET PO (08:58)
[2018-02-16] MEDS: MELOXICAM 15 MG TAB PO (08:58)
[2018-02-16] MEDS: SENNA TAB PO ×2 (08:58→20:59)
[2018-02-16] MEDS: CEFTRIAXONE 2 GM/50 ML (PMX) 50 ML IVPB (15:22)
[2018-02-17] MEDS: ENOXAPARIN 40 MG/0.4 ML SYG SC (08:50)
[2018-02-17] MEDS: ASPIRIN 81 MG TAB PO (09:32)
[2018-02-17] MEDS: MELOXICAM 15 MG TAB PO (09:32)
[2018-02-17] MEDS: SENNA TAB PO ×2 (09:32→21:11)
[2018-02-17] MEDS: POLYETHYLENE GLYCOL 17 GM PACKET PO (09:33)
[2018-02-17] MEDS: DOCUSATE SODIUM 100 MG CAP PO ×2 (09:33→21:10)
[2018-02-17] MEDS: HYDROCODONE/APAP (5/325) TAB PO (11:06)
[2018-02-17] MEDS ORDERED: PENDING SANTYL ORDER FOR WOUND CARE XX (11:30)
[2018-02-17] MEDS: CEFTRIAXONE 2 GM/50 ML (PMX) 50 ML IVPB (15:54)
[2018-02-17] MEDS: KETOCONAZOLE 2% 15 GM CR TOP ×2 (15:54→21:11)
[2018-02-18] MEDS: KETOCONAZOLE 2% 15 GM CR TOP ×2 (07:58→21:14)
[2018-02-18] MEDS: POLYETHYLENE GLYCOL 17 GM PACKET PO (08:44)
[2018-02-18] MEDS: MELOXICAM 15 MG TAB PO (08:44)
[2018-02-18] MEDS: SENNA TAB PO ×2 (08:44→21:14)
[2018-02-18] MEDS: ENOXAPARIN 40 MG/0.4 ML SYG SC (08:44)
[2018-02-18] MEDS: DOCUSATE SODIUM 100 MG CAP PO ×2 (08:44→21:14)
[2018-02-18] MEDS: ASPIRIN 81 MG TAB PO (08:44)
[2018-02-18] MEDS: HYDROCODONE/APAP (5/325) TAB PO (13:09)
[2018-02-18] MEDS: CEFTRIAXONE 2 GM/50 ML (PMX) 50 ML IVPB (17:16)
[2018-02-19 06:26] LABS: ADD MAN DIFF? NO
[2018-02-19 06:30] LABS: WHITE BLOOD COUNT 3.6 10^3/ul (4.8-10.8)
[2018-02-19 06:30] LABS: ABNORMAL IP MESSAGE 1; BASOPHIL # 0.1 10^3/ul (0.0-0.1); BASOPHILS % 1.4 % (0.0-2.0); EOSINOPHILS # 0.6 10^3/ul (0.0-0.5); EOSINOPHILS % 15.8 % (0.0-7.0); HEMATOCRIT 33.9 % (42.0-52.0); HEMOGLOBIN 10.8 g/dl (14.0-18.0); LYMPHOCYTES # 1.3 10^3/ul (0.8-2.9); LYMPHOCYTES % 36.3 % (15.0-51.0); MEAN CORPUSCULAR HEMOGLOBIN 28.1 pg (29.0-33.0); MEAN CORPUSCULAR HGB CONC 31.9 g/dl (32.0-37.0); MEAN CORPUSCULAR VOLUME 88.1 fl (82.0-101.0); MEAN PLATELET VOLUME 9.2 fl (7.4-10.4); MONOCYTE # 1.3 10^3/ul (0.3-0.9); MONOCYTES % 35.8 % (0.0-11.0); NEUTROPHIL # 0.4 10^3/ul (1.6-7.5); NEUTROPHILS % 10.1 % (39.0-77.0); PLATELET COUNT 363 10^3/UL (140-415); POSITIVE DIFF @See below; RED BLOOD COUNT 3.85 10^6/ul (4.70-6.10); RED CELL DISTRIBUTION WIDTH 13.6 % (11.5-14.5)
[2018-02-19 07:01] LABS: ANION GAP 10 (8-16); BLOOD UREA NITROGEN 13 mg/dl (7-20); CARBON DIOXIDE 30 mmol/L (21-31); CHLORIDE 100 mmol/L (97-110); GLUCOSE 93 mg/dl (70-220); POTASSIUM 4.6 mmol/L (3.5-5.1); SODIUM 135 mmol/L (135-144)
[2018-02-19] MEDS: KETOCONAZOLE 2% 15 GM CR TOP ×2 (08:55→21:20)
[2018-02-19] MEDS: ASPIRIN 81 MG TAB PO (08:55)
[2018-02-19] MEDS: POLYETHYLENE GLYCOL 17 GM PACKET PO (08:56)
[2018-02-19] MEDS: SENNA TAB PO ×2 (08:56→21:00)
[2018-02-19] MEDS: DOCUSATE SODIUM 100 MG CAP PO ×2 (08:56→21:00)
[2018-02-19] MEDS: MELOXICAM 15 MG TAB PO (08:56)
[2018-02-19] MEDS: ENOXAPARIN 40 MG/0.4 ML SYG SC (08:57)
[2018-02-19] MEDS: CEFTRIAXONE 2 GM/50 ML (PMX) 50 ML IVPB (15:21)
[2018-02-20] MEDS: MELOXICAM 15 MG TAB PO (09:44)
[2018-02-20] MEDS: SENNA TAB PO ×2 (09:44→20:55)
[2018-02-20] MEDS: POLYETHYLENE GLYCOL 17 GM PACKET PO (09:44)
[2018-02-20] MEDS: ASPIRIN 81 MG TAB PO (09:44)
[2018-02-20] MEDS: DOCUSATE SODIUM 100 MG CAP PO ×2 (09:44→20:55)
[2018-02-20] MEDS: KETOCONAZOLE 2% 15 GM CR TOP ×2 (09:45→20:55)
[2018-02-20] MEDS: ENOXAPARIN 40 MG/0.4 ML SYG SC (09:46)
[2018-02-20] MEDS: CEFTRIAXONE 2 GM/50 ML (PMX) 50 ML IVPB (15:58)
[2018-02-21] MEDS ORDERED: POLYETHYLENE GLYCOL 17 GM PACKET PO (09:00)
[2018-02-21] MEDS: ASPIRIN 81 MG TAB PO (09:47)
[2018-02-21] MEDS: DOCUSATE SODIUM 100 MG CAP PO ×2 (09:47→20:42)
[2018-02-21] MEDS: MELOXICAM 15 MG TAB PO (09:47)
[2018-02-21] MEDS: SENNA TAB PO ×2 (09:47→20:42)
[2018-02-21] MEDS: KETOCONAZOLE 2% 15 GM CR TOP ×2 (09:48→20:44)
[2018-02-21] MEDS: ENOXAPARIN 40 MG/0.4 ML SYG SC (09:50)
[2018-02-21] MEDS: CEFTRIAXONE 2 GM/50 ML (PMX) 50 ML IVPB (15:36)
[2018-02-22] MEDS: HYDROCODONE/APAP (5/325) TAB PO (06:22)
[2018-02-22] MEDS: DOCUSATE SODIUM 100 MG CAP PO ×2 (08:31→20:22)
[2018-02-22] MEDS: ASPIRIN 81 MG TAB PO (08:31)
[2018-02-22] MEDS: MELOXICAM 15 MG TAB PO (08:31)
[2018-02-22] MEDS: SENNA TAB PO ×2 (08:31→20:22)
[2018-02-22] MEDS: ENOXAPARIN 40 MG/0.4 ML SYG SC (08:32)
[2018-02-22] MEDS: KETOCONAZOLE 2% 15 GM CR TOP ×2 (08:33→20:22)
[2018-02-22] MEDS: CEFTRIAXONE 2 GM/50 ML (PMX) 50 ML IVPB (15:09)
[2018-02-23] MEDS: HYDROCODONE/APAP (5/325) TAB PO (09:43)
[2018-02-23] MEDS: SENNA TAB PO ×2 (09:43→20:26)
[2018-02-23] MEDS: ASPIRIN 81 MG TAB PO (09:43)
[2018-02-23] MEDS: MELOXICAM 15 MG TAB PO (09:43)
[2018-02-23] MEDS: DOCUSATE SODIUM 100 MG CAP PO ×2 (09:43→20:26)
[2018-02-23] MEDS: ENOXAPARIN 40 MG/0.4 ML SYG SC (09:44)
[2018-02-23] MEDS: KETOCONAZOLE 2% 15 GM CR TOP ×2 (09:44→20:33)
[2018-02-23] MEDS: CEFTRIAXONE 2 GM/50 ML (PMX) 50 ML IVPB (15:07)
[2018-02-23] MEDS: DOXYCYCLINE 100 MG TAB PO (20:26)
[2018-02-24] MEDS: ASPIRIN 81 MG TAB PO (08:53)
[2018-02-24] MEDS: SENNA TAB PO ×2 (08:53→20:33)
[2018-02-24] MEDS: DOXYCYCLINE 100 MG TAB PO ×2 (08:53→20:33)
[2018-02-24] MEDS: MELOXICAM 15 MG TAB PO (08:53)
[2018-02-24] MEDS: DOCUSATE SODIUM 100 MG CAP PO ×2 (08:54→20:33)
[2018-02-24] MEDS: ENOXAPARIN 40 MG/0.4 ML SYG SC (08:55)
[2018-02-24] MEDS: KETOCONAZOLE 2% 15 GM CR TOP ×2 (08:56→20:34)
[2018-02-24] MEDS: HYDROCODONE/APAP (5/325) TAB PO ×2 (09:01→20:42)
[2018-02-25] MEDS: DOCUSATE SODIUM 100 MG CAP PO ×2 (08:35→20:27)
[2018-02-25] MEDS: ASPIRIN 81 MG TAB PO (08:35)
[2018-02-25] MEDS: MELOXICAM 15 MG TAB PO (08:35)
[2018-02-25] MEDS: DOXYCYCLINE 100 MG TAB PO ×2 (08:35→20:26)
[2018-02-25] MEDS: SENNA TAB PO ×2 (08:35→20:27)
[2018-02-25] MEDS: KETOCONAZOLE 2% 15 GM CR TOP ×2 (08:36→20:26)
[2018-02-25] MEDS: ENOXAPARIN 40 MG/0.4 ML SYG SC (08:36)
[2018-02-26] MEDS: DOXYCYCLINE 100 MG TAB PO ×2 (08:20→20:29)
[2018-02-26] MEDS: SENNA TAB PO ×2 (08:20→20:29)
[2018-02-26] MEDS: ASPIRIN 81 MG TAB PO (08:20)
[2018-02-26] MEDS: DOCUSATE SODIUM 100 MG CAP PO ×2 (08:20→20:29)
[2018-02-26] MEDS: MELOXICAM 15 MG TAB PO (08:21)
[2018-02-26] MEDS: KETOCONAZOLE 2% 15 GM CR TOP ×2 (08:23→20:29)
[2018-02-26] MEDS: ENOXAPARIN 40 MG/0.4 ML SYG SC (08:23)
[2018-02-26] MEDS: HYDROCODONE/APAP (5/325) TAB PO (13:05)
[2018-02-27] MEDS: KETOCONAZOLE 2% 15 GM CR TOP ×2 (09:00→20:02)
[2018-02-27] MEDS: ASPIRIN 81 MG TAB PO (09:07)
[2018-02-27] MEDS: DOCUSATE SODIUM 100 MG CAP PO ×2 (09:07→20:00)
[2018-02-27] MEDS: SENNA TAB PO ×2 (09:07→20:00)
[2018-02-27] MEDS: MELOXICAM 15 MG TAB PO (09:07)
[2018-02-27] MEDS: DOXYCYCLINE 100 MG TAB PO ×2 (09:07→20:00)
[2018-02-27] MEDS: ENOXAPARIN 40 MG/0.4 ML SYG SC (09:08)
[2018-02-28] MEDS: ENOXAPARIN 40 MG/0.4 ML SYG SC (08:45)
[2018-02-28] MEDS: SENNA TAB PO ×2 (08:46→20:22)
[2018-02-28] MEDS: DOCUSATE SODIUM 100 MG CAP PO ×2 (08:46→20:22)
[2018-02-28] MEDS: ASPIRIN 81 MG TAB PO (08:46)
[2018-02-28] MEDS: DOXYCYCLINE 100 MG TAB PO ×2 (08:46→20:22)
[2018-02-28] MEDS: MELOXICAM 15 MG TAB PO (08:46)
[2018-02-28] MEDS: KETOCONAZOLE 2% 15 GM CR TOP ×2 (08:51→20:22)
[2018-02-28] MEDS: HYDROCODONE/APAP (5/325) TAB PO (10:29)
[2018-03-01 06:31] LABS: ADD MAN DIFF? NO
[2018-03-01 06:33] LABS: WHITE BLOOD COUNT 8.1 10^3/ul (4.8-10.8)
[2018-03-01 06:33] LABS: BASOPHIL # 0.1 10^3/ul (0.0-0.1); BASOPHILS % 0.6 % (0.0-2.0); EOSINOPHILS # 0.5 10^3/ul (0.0-0.5); EOSINOPHILS % 6.4 % (0.0-7.0); HEMATOCRIT 37.3 % (42.0-52.0); HEMOGLOBIN 11.8 g/dl (14.0-18.0); LYMPHOCYTES # 2.1 10^3/ul (0.8-2.9); LYMPHOCYTES % 25.5 % (15.0-51.0); MEAN CORPUSCULAR HEMOGLOBIN 28.2 pg (29.0-33.0); MEAN CORPUSCULAR HGB CONC 31.6 g/dl (32.0-37.0); MEAN CORPUSCULAR VOLUME 89.2 fl (82.0-101.0); MEAN PLATELET VOLUME 9.1 fl (7.4-10.4); MONOCYTE # 0.9 10^3/ul (0.3-0.9); MONOCYTES % 10.7 % (0.0-11.0); NEUTROPHIL # 4.5 10^3/ul (1.6-7.5); NEUTROPHILS % 55.9 % (39.0-77.0); PLATELET COUNT 333 10^3/UL (140-415); RED BLOOD COUNT 4.18 10^6/ul (4.70-6.10)
[2018-03-01 07:16] LABS: ANION GAP 12 (8-16); BLOOD UREA NITROGEN 17 mg/dl (7-20); CALCIUM 9.3 mg/dl (8.4-10.2); CARBON DIOXIDE 31 mmol/L (21-31); CHLORIDE 100 mmol/L (97-110); CREATININE 0.77 mg/dl (0.61-1.24); GLUCOSE 94 mg/dl (70-220); MAGNESIUM 1.9 mg/dl (1.7-2.5); POTASSIUM 5.2 mmol/L (3.5-5.1); SODIUM 138 mmol/L (135-144)
[2018-03-01] MEDS: MELOXICAM 15 MG TAB PO (09:23)
[2018-03-01] MEDS: DOCUSATE SODIUM 100 MG CAP PO ×2 (09:23→20:11)
[2018-03-01] MEDS: HYDROCODONE/APAP (5/325) TAB PO (09:23)
[2018-03-01] MEDS: DOXYCYCLINE 100 MG TAB PO ×2 (09:23→20:12)
[2018-03-01] MEDS: ASPIRIN 81 MG TAB PO (09:23)
[2018-03-01] MEDS: SENNA TAB PO ×2 (09:23→20:11)
[2018-03-01] MEDS: ENOXAPARIN 40 MG/0.4 ML SYG SC (09:24)
[2018-03-01] MEDS: KETOCONAZOLE 2% 15 GM CR TOP ×2 (09:34→20:13)
[2018-03-01] MEDS: NA POLYST SULFON 15 GM/60 ML BTL PO (16:14)
[2018-03-02 06:15] LABS: ADD MAN DIFF? NO
[2018-03-02 06:18] LABS: WHITE BLOOD COUNT 9.2 10^3/ul (4.8-10.8)
[2018-03-02 06:18] LABS: BASOPHIL # 0.1 10^3/ul (0.0-0.1); BASOPHILS % 0.7 % (0.0-2.0); EOSINOPHILS # 0.5 10^3/ul (0.0-0.5); HEMATOCRIT 36.1 % (42.0-52.0); HEMOGLOBIN 11.5 g/dl (14.0-18.0); LYMPHOCYTES # 2.1 10^3/ul (0.8-2.9); LYMPHOCYTES % 22.7 % (15.0-51.0); MEAN CORPUSCULAR HEMOGLOBIN 28.3 pg (29.0-33.0); MEAN CORPUSCULAR HGB CONC 31.9 g/dl (32.0-37.0); MEAN CORPUSCULAR VOLUME 88.9 fl (82.0-101.0); MONOCYTE # 1.1 10^3/ul (0.3-0.9); MONOCYTES % 11.4 % (0.0-11.0); NEUTROPHIL # 5.5 10^3/ul (1.6-7.5); NEUTROPHILS % 59.2 % (39.0-77.0); PLATELET COUNT 321 10^3/UL (140-415); RED BLOOD COUNT 4.06 10^6/ul (4.70-6.10)
[2018-03-02 06:49] LABS: ANION GAP 12 (8-16); BLOOD UREA NITROGEN 16 mg/dl (7-20); CALCIUM 9.2 mg/dl (8.4-10.2); CARBON DIOXIDE 31 mmol/L (21-31); CHLORIDE 99 mmol/L (97-110); GLUCOSE 93 mg/dl (70-220); MAGNESIUM 1.9 mg/dl (1.7-2.5); PHOSPHORUS 3.9 mg/dl (2.5-4.9); POTASSIUM 4.4 mmol/L (3.5-5.1); SODIUM 138 mmol/L (135-144)
[2018-03-02] MEDS: MELOXICAM 15 MG TAB PO (09:09)
[2018-03-02] MEDS: SENNA TAB PO ×2 (09:09→21:55)
[2018-03-02] MEDS: DOCUSATE SODIUM 100 MG CAP PO ×2 (09:09→21:55)
[2018-03-02] MEDS: ASPIRIN 81 MG TAB PO (09:09)
[2018-03-02] MEDS: DOXYCYCLINE 100 MG TAB PO ×2 (09:09→21:55)
[2018-03-02] MEDS: HYDROCODONE/APAP (5/325) TAB PO (09:11)
[2018-03-02] MEDS: ENOXAPARIN 40 MG/0.4 ML SYG SC (09:11)
[2018-03-02] MEDS: KETOCONAZOLE 2% 15 GM CR TOP ×2 (09:16→21:55)
[2018-03-03] MEDS: ENOXAPARIN 40 MG/0.4 ML SYG SC (09:03)
[2018-03-03] MEDS: MELOXICAM 15 MG TAB PO (09:04)
[2018-03-03] MEDS: DOCUSATE SODIUM 100 MG CAP PO ×2 (09:04→21:42)
[2018-03-03] MEDS: ASPIRIN 81 MG TAB PO (09:04)
[2018-03-03] MEDS: KETOCONAZOLE 2% 15 GM CR TOP ×2 (09:04→21:42)
[2018-03-03] MEDS: SENNA TAB PO ×2 (09:04→21:44)
[2018-03-03] MEDS: DOXYCYCLINE 100 MG TAB PO ×2 (09:04→21:42)
[2018-03-03] MEDS: HYDROCODONE/APAP (5/325) TAB PO (10:06)
[2018-03-04] MEDS: SENNA TAB PO ×2 (08:48→21:48)
[2018-03-04] MEDS: DOCUSATE SODIUM 100 MG CAP PO ×2 (08:48→21:48)
[2018-03-04] MEDS: ASPIRIN 81 MG TAB PO (08:48)
[2018-03-04] MEDS: DOXYCYCLINE 100 MG TAB PO ×2 (08:48→21:48)
[2018-03-04] MEDS: KETOCONAZOLE 2% 15 GM CR TOP ×2 (08:48→21:49)
[2018-03-04] MEDS: MELOXICAM 15 MG TAB PO (08:48)
[2018-03-04] MEDS: ENOXAPARIN 40 MG/0.4 ML SYG SC (08:50)
[2018-03-04] MEDS: HYDROCODONE/APAP (5/325) TAB PO (12:34)
[2018-03-04] MEDS: ACETAMINOPHEN 325 MG TAB PO (21:49)
[2018-03-05] MEDS: DOCUSATE SODIUM 100 MG CAP PO ×2 (08:33→21:00)
[2018-03-05] MEDS: MELOXICAM 15 MG TAB PO (08:33)
[2018-03-05] MEDS: ASPIRIN 81 MG TAB PO (08:33)
[2018-03-05] MEDS: DOXYCYCLINE 100 MG TAB PO ×2 (08:33→22:29)
[2018-03-05] MEDS: SENNA TAB PO ×2 (08:33→21:00)
[2018-03-05] MEDS: ENOXAPARIN 40 MG/0.4 ML SYG SC (08:34)
[2018-03-05] MEDS: HYDROCODONE/APAP (5/325) TAB PO (08:36)
[2018-03-05] MEDS: KETOCONAZOLE 2% 15 GM CR TOP ×2 (08:40→22:30)
[2018-03-06] MEDS: DOXYCYCLINE 100 MG TAB PO ×2 (08:36→20:37)
[2018-03-06] MEDS: DOCUSATE SODIUM 100 MG CAP PO ×2 (08:36→20:37)
[2018-03-06] MEDS: ASPIRIN 81 MG TAB PO (08:36)
[2018-03-06] MEDS: MELOXICAM 15 MG TAB PO (08:36)
[2018-03-06] MEDS: SENNA TAB PO ×2 (08:36→20:37)
[2018-03-06] MEDS: KETOCONAZOLE 2% 15 GM CR TOP ×2 (08:37→20:37)
[2018-03-06] MEDS: ENOXAPARIN 40 MG/0.4 ML SYG SC (08:41)
[2018-03-07] MEDS: DOCUSATE SODIUM 100 MG CAP PO ×2 (09:08→20:28)
[2018-03-07] MEDS: MELOXICAM 15 MG TAB PO (09:08)
[2018-03-07] MEDS: SENNA TAB PO ×2 (09:08→20:28)
[2018-03-07] MEDS: DOXYCYCLINE 100 MG TAB PO ×2 (09:09→20:28)
[2018-03-07] MEDS: KETOCONAZOLE 2% 15 GM CR TOP ×2 (09:09→20:29)
[2018-03-07] MEDS: ASPIRIN 81 MG TAB PO (09:09)
[2018-03-07] MEDS: ENOXAPARIN 40 MG/0.4 ML SYG SC (09:11)
[2018-03-08] MEDS: SENNA TAB PO ×2 (09:09→20:15)
[2018-03-08] MEDS: DOCUSATE SODIUM 100 MG CAP PO ×2 (09:09→20:15)
[2018-03-08] MEDS: MELOXICAM 15 MG TAB PO (09:09)
[2018-03-08] MEDS: ASPIRIN 81 MG TAB PO (09:09)
[2018-03-08] MEDS: DOXYCYCLINE 100 MG TAB PO ×2 (09:09→20:15)
[2018-03-08] MEDS: KETOCONAZOLE 2% 15 GM CR TOP ×2 (09:10→20:17)
[2018-03-08] MEDS: ENOXAPARIN 40 MG/0.4 ML SYG SC (09:11)
[2018-03-08] MEDS: HYDROCODONE/APAP (5/325) TAB PO (09:21)
[2018-03-09] MEDS: DOCUSATE SODIUM 100 MG CAP PO ×2 (09:00→21:14)
[2018-03-09] MEDS: DOXYCYCLINE 100 MG TAB PO ×2 (09:49→21:14)
[2018-03-09] MEDS: SENNA TAB PO ×2 (09:49→21:14)
[2018-03-09] MEDS: KETOCONAZOLE 2% 15 GM CR TOP ×2 (09:50→21:15)
[2018-03-09] MEDS: MELOXICAM 15 MG TAB PO (09:50)
[2018-03-09] MEDS: ASPIRIN 81 MG TAB PO (09:50)
[2018-03-09] MEDS: ENOXAPARIN 40 MG/0.4 ML SYG SC (09:51)
[2018-03-09] MEDS: HYDROCODONE/APAP (5/325) TAB PO (11:18)
[2018-03-10] MEDS: KETOCONAZOLE 2% 15 GM CR TOP ×2 (09:04→20:00)
[2018-03-10] MEDS: DOXYCYCLINE 100 MG TAB PO ×2 (09:04→20:00)
[2018-03-10] MEDS: MELOXICAM 15 MG TAB PO (09:04)
[2018-03-10] MEDS: DOCUSATE SODIUM 100 MG CAP PO ×2 (09:04→20:00)
[2018-03-10] MEDS: ASPIRIN 81 MG TAB PO (09:04)
[2018-03-10] MEDS: SENNA TAB PO ×2 (09:04→20:00)
[2018-03-10] MEDS: ENOXAPARIN 40 MG/0.4 ML SYG SC (09:09)
[2018-03-10] MEDS: HYDROCODONE/APAP (5/325) TAB PO (09:10)
[2018-03-11] MEDS: MELOXICAM 15 MG TAB PO (08:44)
[2018-03-11] MEDS: SENNA TAB PO ×2 (08:44→20:16)
[2018-03-11] MEDS: DOCUSATE SODIUM 100 MG CAP PO ×2 (08:44→20:16)
[2018-03-11] MEDS: ASPIRIN 81 MG TAB PO (08:44)
[2018-03-11] MEDS: DOXYCYCLINE 100 MG TAB PO ×2 (08:44→20:16)
[2018-03-11] MEDS: ENOXAPARIN 40 MG/0.4 ML SYG SC (08:45)
[2018-03-11] MEDS: KETOCONAZOLE 2% 15 GM CR TOP ×2 (08:46→20:16)
[2018-03-11] MEDS: HYDROCODONE/APAP (5/325) TAB PO (09:17)
[2018-03-11] MEDS ORDERED: MELOXICAM 15 MG TAB PO (13:30)
[2018-03-12] MEDS: DOCUSATE SODIUM 100 MG CAP PO ×2 (08:20→20:14)
[2018-03-12] MEDS: DOXYCYCLINE 100 MG TAB PO ×2 (08:20→20:14)
[2018-03-12] MEDS: ENOXAPARIN 40 MG/0.4 ML SYG SC (08:21)
[2018-03-12] MEDS: KETOCONAZOLE 2% 15 GM CR TOP ×2 (08:26→20:15)
[2018-03-12] MEDS: SENNA TAB PO ×2 (08:27→20:14)
[2018-03-12] MEDS: DIPHENHYDRAMINE 50 MG CAP PO (22:54)
[2018-03-13] MEDS: DIPHENHYDRAMINE 50 MG CAP PO ×3 (08:29→21:40)
[2018-03-13] MEDS: KETOCONAZOLE 2% 15 GM CR TOP ×2 (08:29→21:40)
[2018-03-13] MEDS: SENNA TAB PO ×2 (08:30→21:00)
[2018-03-13] MEDS: DOCUSATE SODIUM 100 MG CAP PO ×2 (08:30→21:00)
[2018-03-13] MEDS: DOXYCYCLINE 100 MG TAB PO ×2 (08:30→21:34)
[2018-03-13] MEDS: ENOXAPARIN 40 MG/0.4 ML SYG SC (08:38)
[2018-03-14] MEDS: SENNA TAB PO ×2 (09:00→21:29)
[2018-03-14] MEDS: DOCUSATE SODIUM 100 MG CAP PO ×2 (09:00→21:29)
[2018-03-14] MEDS: ENOXAPARIN 40 MG/0.4 ML SYG SC (09:09)
[2018-03-14] MEDS: DIPHENHYDRAMINE 50 MG CAP PO (09:10)
[2018-03-14] MEDS: DOXYCYCLINE 100 MG TAB PO ×2 (09:10→21:29)
[2018-03-14] MEDS: HYDROCODONE/APAP (5/325) TAB PO (09:10)
[2018-03-14] MEDS: KETOCONAZOLE 2% 15 GM CR TOP ×2 (09:18→21:29)
[2018-03-15 06:05] LABS: ADD MAN DIFF? NO
[2018-03-15 06:11] LABS: WHITE BLOOD COUNT 7.6 10^3/ul (4.8-10.8)
[2018-03-15 06:11] LABS: BASOPHIL # 0.1 10^3/ul (0.0-0.1); BASOPHILS % 0.7 % (0.0-2.0); EOSINOPHILS # 0.5 10^3/ul (0.0-0.5); EOSINOPHILS % 6.2 % (0.0-7.0); HEMATOCRIT 38.6 % (42.0-52.0); HEMOGLOBIN 12.1 g/dl (14.0-18.0); LYMPHOCYTES % 25.5 % (15.0-51.0); MEAN CORPUSCULAR HEMOGLOBIN 27.6 pg (29.0-33.0); MEAN CORPUSCULAR HGB CONC 31.3 g/dl (32.0-37.0); MEAN CORPUSCULAR VOLUME 88.1 fl (82.0-101.0); MEAN PLATELET VOLUME 9.5 fl (7.4-10.4); MONOCYTES % 13.1 % (0.0-11.0); NEUTROPHIL # 4.2 10^3/ul (1.6-7.5); NEUTROPHILS % 54.2 % (39.0-77.0); PLATELET COUNT 315 10^3/UL (140-415); RED BLOOD COUNT 4.38 10^6/ul (4.70-6.10); RED CELL DISTRIBUTION WIDTH 14.8 % (11.5-14.5)
[2018-03-15 06:30] LABS: ANION GAP 14 (8-16); BLOOD UREA NITROGEN 15 mg/dl (7-20); CALCIUM 9.1 mg/dl (8.4-10.2); CARBON DIOXIDE 29 mmol/L (21-31); CHLORIDE 98 mmol/L (97-110); CREATININE 0.77 mg/dl (0.61-1.24); GLUCOSE 87 mg/dl (70-220); PHOSPHORUS 4.6 mg/dl (2.5-4.9); POTASSIUM 4.3 mmol/L (3.5-5.1); SODIUM 137 mmol/L (135-144)
[2018-03-15] MEDS: SENNA TAB PO ×2 (08:28→20:31)
[2018-03-15] MEDS: DOCUSATE SODIUM 100 MG CAP PO ×2 (08:28→20:32)
[2018-03-15] MEDS: DOXYCYCLINE 100 MG TAB PO ×2 (08:29→20:32)
[2018-03-15] MEDS: DIPHENHYDRAMINE 50 MG CAP PO (08:33)
[2018-03-15] MEDS: ENOXAPARIN 40 MG/0.4 ML SYG SC (08:34)
[2018-03-15] MEDS: KETOCONAZOLE 2% 15 GM CR TOP ×2 (08:35→20:31)
[2018-03-15] MEDS ORDERED: DOCUSATE SODIUM 100 MG CAP PO (09:00)
[2018-03-15] MEDS ORDERED: SENNA TAB PO (09:00)
[2018-03-15] MEDS: HYDROCODONE/APAP (5/325) TAB PO (10:07)
[2018-03-15] MEDS: ACETAMINOPHEN 325 MG TAB PO (20:31)
[2018-03-16] MEDS: SENNA TAB PO ×2 (08:33→20:49)
[2018-03-16] MEDS: DOXYCYCLINE 100 MG TAB PO ×2 (08:33→20:49)
[2018-03-16] MEDS: DOCUSATE SODIUM 100 MG CAP PO ×2 (08:34→20:49)
[2018-03-16] MEDS: KETOCONAZOLE 2% 15 GM CR TOP ×2 (08:37→20:49)
[2018-03-16] MEDS: ENOXAPARIN 40 MG/0.4 ML SYG SC (08:37)
[2018-03-16] MEDS: DIPHENHYDRAMINE 50 MG CAP PO (08:38)
[2018-03-16] MEDS: HYDROCODONE/APAP (5/325) TAB PO (09:25)
[2018-03-17] MEDS: SENNA TAB PO ×2 (08:49→21:13)
[2018-03-17] MEDS: DOCUSATE SODIUM 100 MG CAP PO ×2 (08:49→21:13)
[2018-03-17] MEDS: KETOCONAZOLE 2% 15 GM CR TOP ×2 (08:49→21:00)
[2018-03-17] MEDS: DOXYCYCLINE 100 MG TAB PO ×2 (08:49→21:12)
[2018-03-17] MEDS: ENOXAPARIN 40 MG/0.4 ML SYG SC (08:50)
[2018-03-17] MEDS: ACETAMINOPHEN 325 MG TAB PO ×2 (10:22→21:12)
[2018-03-18] MEDS: ENOXAPARIN 40 MG/0.4 ML SYG SC (08:46)
[2018-03-18] MEDS: DOXYCYCLINE 100 MG TAB PO ×2 (08:46→20:30)
[2018-03-18] MEDS: DOCUSATE SODIUM 100 MG CAP PO ×2 (08:46→20:30)
[2018-03-18] MEDS: SENNA TAB PO ×2 (08:46→20:30)
[2018-03-18] MEDS: KETOCONAZOLE 2% 15 GM CR TOP ×3 (09:00→20:30)
[2018-03-18] MEDS: ACETAMINOPHEN 325 MG TAB PO (10:08)
[2018-03-19] MEDS: KETOCONAZOLE 2% 15 GM CR TOP ×4 (09:00→21:03)
[2018-03-19] MEDS: DOCUSATE SODIUM 100 MG CAP PO ×2 (09:13→21:03)
[2018-03-19] MEDS: SENNA TAB PO ×2 (09:13→21:03)
[2018-03-19] MEDS: DOXYCYCLINE 100 MG TAB PO ×2 (09:13→21:03)
[2018-03-19] MEDS: ENOXAPARIN 40 MG/0.4 ML SYG SC (09:15)
[2018-03-20] MEDS: SENNA TAB PO ×2 (08:07→21:00)
[2018-03-20] MEDS: DOXYCYCLINE 100 MG TAB PO ×2 (08:07→21:00)
[2018-03-20] MEDS: DOCUSATE SODIUM 100 MG CAP PO ×2 (08:07→21:00)
[2018-03-20] MEDS: KETOCONAZOLE 2% 15 GM CR TOP ×2 (08:07→21:00)
[2018-03-20] MEDS: ENOXAPARIN 40 MG/0.4 ML SYG SC (08:08)
[2018-03-20] MEDS: ACETAMINOPHEN 325 MG TAB PO (10:20)
[2018-03-21 06:38] LABS: ADD MAN DIFF? NO
[2018-03-21 06:40] LABS: BASOPHILS % 0.5 % (0.0-2.0); EOSINOPHILS # 0.5 10^3/ul (0.0-0.5); EOSINOPHILS % 7.1 % (0.0-7.0); HEMOGLOBIN 11.4 g/dl (14.0-18.0); LYMPHOCYTES # 1.7 10^3/ul (0.8-2.9); LYMPHOCYTES % 26.7 % (15.0-51.0); MEAN CORPUSCULAR HEMOGLOBIN 27.5 pg (29.0-33.0); MEAN CORPUSCULAR HGB CONC 30.8 g/dl (32.0-37.0); MEAN CORPUSCULAR VOLUME 89.4 fl (82.0-101.0); MEAN PLATELET VOLUME 9.4 fl (7.4-10.4); MONOCYTE # 0.8 10^3/ul (0.3-0.9); MONOCYTES % 12.9 % (0.0-11.0); NEUTROPHIL # 3.4 10^3/ul (1.6-7.5); NEUTROPHILS % 52.3 % (39.0-77.0); PLATELET COUNT 317 10^3/UL (140-415); RED BLOOD COUNT 4.14 10^6/ul (4.70-6.10); RED CELL DISTRIBUTION WIDTH 14.8 % (11.5-14.5)
[2018-03-21 06:40] LABS: WHITE BLOOD COUNT 6.5 10^3/ul (4.8-10.8)
[2018-03-21 07:14] LABS: ANION GAP 9 (8-16); BLOOD UREA NITROGEN 12 mg/dl (7-20); CALCIUM 9.2 mg/dl (8.4-10.2); CARBON DIOXIDE 32 mmol/L (21-31); CHLORIDE 101 mmol/L (97-110); CREATININE 0.71 mg/dl (0.61-1.24); GLUCOSE 89 mg/dl (70-220); PHOSPHORUS 4.2 mg/dl (2.5-4.9); POTASSIUM 4.2 mmol/L (3.5-5.1); SODIUM 138 mmol/L (135-144)
[2018-03-21] MEDS: DOCUSATE SODIUM 100 MG CAP PO (08:45)
[2018-03-21] MEDS: SENNA TAB PO (08:45)
[2018-03-21] MEDS: DOXYCYCLINE 100 MG TAB PO (08:45)
[2018-03-21] MEDS: ENOXAPARIN 40 MG/0.4 ML SYG SC (08:46)
[2018-03-21] MEDS: KETOCONAZOLE 2% 15 GM CR TOP (08:47)
== END 2018-03-21 19:50 | DRG 559 ==
LOC: E/R 19:08 → PP2 01-18 17:30
PROC: 0S9D30Z Drainage of Left Knee Joint with Drainage Device, Percutaneous Approach (ICD-10-PCS; principal; 2018-01-18)
PROC: 02HV33Z Insertion of Infusion Device into Superior Vena Cava, Percutaneous Approach (ICD-10-PCS; 2018-01-20)
DX: T84.54XA Infection and inflammatory reaction due to internal left knee prosthesis, initial encounter (principal); A41.1 Sepsis due to other specified staphylococcus; L03.116 Cellulitis of left lower limb; E87.1 Hypo-osmolality and hyponatremia; B48.8 Other specified mycoses; T84.023A Instability of internal left knee prosthesis, initial encounter; I10 Essential (primary) hypertension; D64.9 Anemia, unspecified; Z96.652 Presence of left artificial knee joint
CPT/HCPCS: 36415; 36569; 71045; 73560; 76937; 80048; 80053; 80069; 80202; 81003; 82565; 82945; 83036; 83605; 83735; 84100; 84157; 84520; 85025; 85610; 85651; 85730; 87040; 87070; 87081; 87086; 89060; 93005; 94770; 96365; 96366; 96375; 96376; 97110; 97163; 97530; 99285-25

== ENCOUNTER → 2018-11-14 | Outpatient (CLI) | payer MEDICARE, OTHER | END | disposition home or self-care (01) | LOC: HKI 14:15 | DX: M79.652 Pain in left thigh (principal) | CPT/HCPCS: 73552; 73590-LT ==

== ENCOUNTER 2018-11-22 05:53 | Inpatient (IN) | payer MEDICARE, OTHER ==
[2018-11-22] MEDS ORDERED: CEFAZOLIN 1 GM INJ (07:00)
[2018-11-22] MEDS ORDERED: ROCURONIUM 50 MG INJ ×2 (07:00→07:26)
[2018-11-22] MEDS ORDERED: SEVOFLURANE 15 MIN (07:00)
[2018-11-22 07:12] LABS: C-REACTIVE PROTEIN 0.8 mg/dl (0.0-0.9)
[2018-11-22] MEDS: VANCOMYCIN HCL 1.5 GM in SOD CHLORIDE 0.9% 250 ML IVPB (07:26)
[2018-11-22] MEDS ORDERED: PROPOFOL 20 ML (07:26)
[2018-11-22] MEDS ORDERED: FENTAnyl 50 MCG/ML VIAL ×2 (07:26→11:14)
[2018-11-22] MEDS ORDERED: EPHEDrine 25 MG/5 ML SYG (07:26)
[2018-11-22] MEDS: LACTATED RINGER'S 1,000 ML IV ×4 (07:26→17:45)
[2018-11-22] MEDS ORDERED: morphine SULFATE/PF (10 MG/10 ML) INJ (07:26)
[2018-11-22] MEDS ORDERED: LIDOCAINE 100 MG SYRINGE (07:26)
[2018-11-22] MEDS ORDERED: MIDAZOLAM 1 MG/ML 2 ML INJ (07:26)
[2018-11-22] MEDS: LANSOPRAZOLE 30 MG CAP PO (07:31)
[2018-11-22] MEDS: ACETAMINOPHEN 500 MG TAB PO ×2 (07:31→21:49)
[2018-11-22] MEDS: CELECOXIB 200 MG CAP PO (07:31)
[2018-11-22] MEDS: ONDANSETRON 4 MG INJ IV ×2 (07:31→14:35)
[2018-11-22 08:20] LABS: ERYTHROCYTE SEDIMENTATION RATE 9 mm/Hr (0-20)
[2018-11-22] MEDS ORDERED: TRANEXAMIC ACID 1GM/100ML(PMX) 200 ML (08:21)
[2018-11-22] MEDS: TRANEXAMIC ACID 1GM/100ML(PMX) 100 ML AT CLOSING IVPB (08:56)
[2018-11-22] MEDS: TRANEXAMIC ACID 1GM/100ML(PMX) 100 ML PRE-OP IVPB (09:12)
[2018-11-22] MEDS: VANCOMYCIN 1 GM INJ ×2 (10:21→11:59)
[2018-11-22] MEDS: TOBRAMYCIN 1.2 GM POWDER ×3 (10:22→12:28)
[2018-11-22] MEDS ORDERED: hydrALAzine 20 MG INJ IV (10:30)
[2018-11-22] MEDS ORDERED: LEVALBUTEROL (NEB) 0.63 MG/3 ML AMP HHN (10:30)
[2018-11-22] MEDS ORDERED: LABETALOL HCL 20MG INJ IV (10:30)
[2018-11-22] MEDS ORDERED: MIDAZOLAM 1 MG/ML 2 ML INJ IV ×2 (10:30→11:00)
[2018-11-22] MEDS ORDERED: METOCLOPRAMIDE 10 MG INJ IV (10:30)
[2018-11-22] MEDS ORDERED: morphine 2 MG INJ IV ×2 (10:30→11:00)
[2018-11-22] MEDS ORDERED: HYDROmorphONE 1 MG/5 ML IV SYRINGE IV ×2 (10:30)
[2018-11-22] MEDS ORDERED: ALBUTEROL 0.083% (NEB) 2.5 MG/3 ML AMP HHN (10:30)
[2018-11-22] MEDS ORDERED: MEPERIDINE 25 MG INJ IV (10:30)
[2018-11-22] MEDS ORDERED: ONDANSETRON 4 MG INJ IV (11:00)
[2018-11-22] MEDS ORDERED: DIPHENHYDRAMINE 50 MG INJ IV ×2 (11:00→14:30)
[2018-11-22] MEDS ORDERED: MINERAL OIL LIGHT 10 ML VIAL (11:19)
[2018-11-22] MEDS: MINERAL OIL LIGHT 10 ML VIAL (11:58)
[2018-11-22] MEDS: METHYLENE BLUE 50 MG/10 ML AMPUL (13:02)
[2018-11-22] MEDS ORDERED: ONDANSETRON 4 MG INJ (13:23)
[2018-11-22] MEDS ORDERED: DEXAMETHASONE 4 MG/ML 5 ML INJ (13:23)
[2018-11-22] MEDS ORDERED: ESMOLOL 10 ML (13:34)
[2018-11-22] MEDS ORDERED: NA PHOSPHATE/BIPHOS 133 ML ENEMA PR (14:30)
[2018-11-22] MEDS ORDERED: BISACODYL 10 MG SUPP PR (14:30)
[2018-11-22] MEDS ORDERED: NALOXONE (0.4 MG/ML) INJ IV (14:30)
[2018-11-22] MEDS ORDERED: NACL 0.9% 3 ML SYG IV (14:30)
[2018-11-22] MEDS ORDERED: oxyCODONE 5 MG TAB PO (14:30)
[2018-11-22] MEDS: HYDROmorphONE 1 MG/5 ML IV SYRINGE IV (14:36)
[2018-11-22] MEDS: FENTAnyl 50 MCG/ML VIAL IV (14:36)
[2018-11-22] MEDS: DIPHENHYDRAMINE 50 MG INJ IV (14:39)
[2018-11-22] MEDS: EPHEDrine 25 MG/5 ML SYG IV (14:49)
[2018-11-22] MEDS: ALBUMIN HUMAN 5% 250 ML IV ×2 (14:51→15:00)
[2018-11-22 15:38] LABS: HEMATOCRIT 35.2 % (42.0-52.0); HEMOGLOBIN 11.3 g/dl (14.0-18.0)
[2018-11-22] MEDS: DOCUSATE SODIUM 100 MG CAP PO (16:02)
[2018-11-22] MEDS: SOD CHLORIDE 0.9% 500 ML IV (16:34)
[2018-11-22] MEDS: VANCOMYCIN 1 GM (PMX) 250 ML IVPB (18:32)
[2018-11-22] MEDS: oxyCODONE 5 MG TAB PO (18:48)
[2018-11-22] MEDS: GABAPENTIN 300 MG CAP PO (21:48)
[2018-11-22] MEDS: PIPER-TAZO 3.375 GM IV (PMX) 100 ML IVPB (21:48)
[2018-11-22] MEDS: TAMSULOSIN (SR) 0.4 MG CAP PO (21:48)
[2018-11-22] MEDS ORDERED: CEPASTAT LOZENGE MT (23:30)
[2018-11-23 05:19] LABS: ADD MAN DIFF? NO
[2018-11-23 05:24] LABS: BASOPHILS % 0.1 % (0.0-2.0); HEMATOCRIT 28.6 % (42.0-52.0); HEMOGLOBIN 9.2 g/dl (14.0-18.0); LYMPHOCYTES # 0.9 10^3/ul (0.8-2.9); LYMPHOCYTES % 6.6 % (15.0-51.0); MEAN CORPUSCULAR HEMOGLOBIN 29.6 pg (29.0-33.0); MEAN CORPUSCULAR HGB CONC 32.2 g/dl (32.0-37.0); MEAN PLATELET VOLUME 9.8 fl (7.4-10.4); MONOCYTE # 1.4 10^3/ul (0.3-0.9); MONOCYTES % 10.1 % (0.0-11.0); NEUTROPHIL # 11.2 10^3/ul (1.6-7.5); NEUTROPHILS % 82.6 % (39.0-77.0); PLATELET COUNT 191 10^3/UL (140-415); RED BLOOD COUNT 3.11 10^6/ul (4.70-6.10); RED CELL DISTRIBUTION WIDTH 13.5 % (11.5-14.5)
[2018-11-23 05:24] LABS: WHITE BLOOD COUNT 13.6 10^3/ul (4.8-10.8)
[2018-11-23 05:56] LABS: ANION GAP 7 (5-13); BLOOD UREA NITROGEN 12 mg/dl (7-20); CALCIUM 8.6 mg/dl (8.4-10.2); CARBON DIOXIDE 26 mmol/L (21-31); CHLORIDE 104 mmol/L (97-110); CREATININE 0.73 mg/dl (0.61-1.24); Estimated GFR > 60 mL/min (>60); GLUCOSE 125 mg/dl (70-220); POTASSIUM 4.9 mmol/L (3.5-5.1); SODIUM 137 mmol/L (135-144)
[2018-11-23] MEDS: ACETAMINOPHEN 500 MG TAB PO ×3 (06:02→22:47)
[2018-11-23] MEDS: PIPER-TAZO 3.375 GM IV (PMX) 100 ML IVPB ×4 (06:02→22:48)
[2018-11-23] MEDS: BETHANECHOL 25 MG TAB PO (06:02)
[2018-11-23] MEDS: VANCOMYCIN 1 GM (PMX) 250 ML IVPB ×2 (06:50→18:12)
[2018-11-23] MEDS: oxyCODONE 5 MG TAB PO ×2 (08:14→20:13)
[2018-11-23] MEDS: ASPIRIN (EC) 81 MG TAB PO ×2 (08:14→20:12)
[2018-11-23] MEDS: CHOLECALCIFEROL 1,000 UNIT TAB PO (08:14)
[2018-11-23] MEDS: DOCUSATE SODIUM 100 MG CAP PO ×2 (08:14→20:12)
[2018-11-23] MEDS: LOSARTAN 50 MG TAB PO (08:15)
[2018-11-23] MEDS ORDERED: ONDANSETRON 4 MG INJ IV (14:30)
[2018-11-23] MEDS: LACTATED RINGER'S 1,000 ML IV (15:07)
[2018-11-23 15:36] LABS: LACTIC ACID 2.2 mmol/L (0.5-2.0)
[2018-11-23] MEDS: SODIUM CHLORIDE 0.9% 1L BAG IV* (16:13)
[2018-11-23] MEDS: SOD CHLORIDE 0.9% 500 ML IV (16:14)
[2018-11-23 20:01] LABS: LACTIC ACID 1.5 mmol/L (0.5-2.0)
[2018-11-23] MEDS: GABAPENTIN 300 MG CAP PO (20:12)
[2018-11-23] MEDS: TAMSULOSIN (SR) 0.4 MG CAP PO (20:12)
[2018-11-24 00:40] LABS: LACTIC ACID 1.2 mmol/L (0.5-2.0)
[2018-11-24] MEDS: LACTATED RINGER'S 1,000 ML IV ×2 (01:10→16:07)
[2018-11-24 05:09] LABS: ADD MAN DIFF? NO
[2018-11-24 05:13] LABS: WHITE BLOOD COUNT 10.8 10^3/ul (4.8-10.8)
[2018-11-24 05:13] LABS: ABNORMAL IP MESSAGE 1; BASOPHIL # 0.1 10^3/ul (0.0-0.1); BASOPHILS % 0.5 % (0.0-2.0); EOSINOPHILS # 0.2 10^3/ul (0.0-0.5); EOSINOPHILS % 1.7 % (0.0-7.0); HEMATOCRIT 25.3 % (42.0-52.0); HEMOGLOBIN 7.9 g/dl (14.0-18.0); LYMPHOCYTES # 2.6 10^3/ul (0.8-2.9); LYMPHOCYTES % 24.3 % (15.0-51.0); MEAN CORPUSCULAR HEMOGLOBIN 29.5 pg (29.0-33.0); MEAN CORPUSCULAR HGB CONC 31.2 g/dl (32.0-37.0); MEAN CORPUSCULAR VOLUME 94.4 fl (82.0-101.0); MEAN PLATELET VOLUME 9.9 fl (7.4-10.4); MONOCYTE # 1.6 10^3/ul (0.3-0.9); MONOCYTES % 14.7 % (0.0-11.0); NEUTROPHIL # 6.3 10^3/ul (1.6-7.5); NEUTROPHILS % 58.4 % (39.0-77.0); PLATELET COUNT 159 10^3/UL (140-415); POSITIVE DIFF @See below; RED BLOOD COUNT 2.68 10^6/ul (4.70-6.10)
[2018-11-24 05:39] LABS: VANCOMYCIN,TROUGH 10.4 ug/ml (10.0-20.0)
[2018-11-24 05:44] LABS: ANION GAP 4 (5-13); BLOOD UREA NITROGEN 16 mg/dl (7-20); CALCIUM 8.1 mg/dl (8.4-10.2); CARBON DIOXIDE 28 mmol/L (21-31); CHLORIDE 107 mmol/L (97-110); CREATININE 0.79 mg/dl (0.61-1.24); Estimated GFR > 60 mL/min (>60); GLUCOSE 90 mg/dl (70-220); POTASSIUM 4.2 mmol/L (3.5-5.1); SODIUM 139 mmol/L (135-144)
[2018-11-24] MEDS: PANTOPRAZOLE (EC) 40 MG TAB PO (06:08)
[2018-11-24] MEDS: ACETAMINOPHEN 500 MG TAB PO ×3 (06:08→21:59)
[2018-11-24] MEDS: PIPER-TAZO 3.375 GM IV (PMX) 100 ML IVPB ×3 (06:08→21:59)
[2018-11-24] MEDS: VANCOMYCIN 1 GM (PMX) 250 ML IVPB (06:09)
[2018-11-24] MEDS: oxyCODONE 5 MG TAB PO (07:58)
[2018-11-24] MEDS: LOSARTAN 50 MG TAB PO (08:41)
[2018-11-24] MEDS: ASPIRIN (EC) 81 MG TAB PO ×2 (08:42→21:59)
[2018-11-24] MEDS: DOCUSATE SODIUM 100 MG CAP PO ×2 (08:42→21:59)
[2018-11-24] MEDS: CHOLECALCIFEROL 1,000 UNIT TAB PO (08:42)
[2018-11-24] MEDS: LIDOCAINE 1% (MPF) 5 ML VIAL SC (17:30)
[2018-11-24] MEDS: VANCOMYCIN HCL 1.25 GM in SOD CHLORIDE 0.9% 250 ML IVPB (17:54)
[2018-11-24] MEDS: GABAPENTIN 300 MG CAP PO (21:59)
[2018-11-24] MEDS: TAMSULOSIN (SR) 0.4 MG CAP PO (21:59)
[2018-11-25 04:58] LABS: ADD MAN DIFF? NO
[2018-11-25 05:02] LABS: BASOPHILS % 0.5 % (0.0-2.0); EOSINOPHILS # 0.3 10^3/ul (0.0-0.5); EOSINOPHILS % 4.1 % (0.0-7.0); HEMATOCRIT 23.7 % (42.0-52.0); HEMOGLOBIN 7.5 g/dl (14.0-18.0); LYMPHOCYTES # 2.1 10^3/ul (0.8-2.9); LYMPHOCYTES % 26.8 % (15.0-51.0); MEAN CORPUSCULAR HEMOGLOBIN 29.8 pg (29.0-33.0); MEAN CORPUSCULAR HGB CONC 31.6 g/dl (32.0-37.0); MEAN PLATELET VOLUME 9.6 fl (7.4-10.4); MONOCYTE # 1.1 10^3/ul (0.3-0.9); MONOCYTES % 13.9 % (0.0-11.0); NEUTROPHIL # 4.3 10^3/ul (1.6-7.5); NEUTROPHILS % 54.1 % (39.0-77.0); PLATELET COUNT 168 10^3/UL (140-415); RED BLOOD COUNT 2.52 10^6/ul (4.70-6.10); RED CELL DISTRIBUTION WIDTH 13.9 % (11.5-14.5)
[2018-11-25 05:25] LABS: ANION GAP 2 (5-13); BLOOD UREA NITROGEN 11 mg/dl (7-20); CALCIUM 8.2 mg/dl (8.4-10.2); CARBON DIOXIDE 31 mmol/L (21-31); CHLORIDE 106 mmol/L (97-110); CREATININE 0.76 mg/dl (0.61-1.24); Estimated GFR > 60 mL/min (>60); GLUCOSE 95 mg/dl (70-220); POTASSIUM 4.1 mmol/L (3.5-5.1); SODIUM 139 mmol/L (135-144)
[2018-11-25] MEDS: PIPER-TAZO 3.375 GM IV (PMX) 100 ML IVPB (05:30)
[2018-11-25] MEDS: VANCOMYCIN HCL 1.25 GM in SOD CHLORIDE 0.9% 250 ML IVPB (06:26)
[2018-11-25] MEDS: ACETAMINOPHEN 500 MG TAB PO ×3 (06:26→22:01)
[2018-11-25] MEDS: PANTOPRAZOLE (EC) 40 MG TAB PO (06:26)
[2018-11-25] MEDS: CHOLECALCIFEROL 1,000 UNIT TAB PO (08:23)
[2018-11-25] MEDS: DOCUSATE SODIUM 100 MG CAP PO ×2 (08:23→21:44)
[2018-11-25] MEDS: ASPIRIN (EC) 81 MG TAB PO ×2 (08:23→21:44)
[2018-11-25] MEDS: CEFAZOLIN 1 GM/50 ML (PMX) 50 ML IVPB ×2 (14:20→21:51)
[2018-11-25] MEDS: TAMSULOSIN (SR) 0.4 MG CAP PO (21:44)
[2018-11-25] MEDS: GABAPENTIN 300 MG CAP PO (21:44)
[2018-11-26 05:33] LABS: ADD MAN DIFF? NO
[2018-11-26 05:34] LABS: WHITE BLOOD COUNT 6.7 10^3/ul (4.8-10.8)
[2018-11-26 05:34] LABS: BASOPHILS % 0.3 % (0.0-2.0); EOSINOPHILS # 0.3 10^3/ul (0.0-0.5); EOSINOPHILS % 3.9 % (0.0-7.0); HEMATOCRIT 23.6 % (42.0-52.0); HEMOGLOBIN 7.5 g/dl (14.0-18.0); LYMPHOCYTES # 1.8 10^3/ul (0.8-2.9); LYMPHOCYTES % 26.8 % (15.0-51.0); MEAN CORPUSCULAR HEMOGLOBIN 29.5 pg (29.0-33.0); MEAN CORPUSCULAR HGB CONC 31.8 g/dl (32.0-37.0); MEAN CORPUSCULAR VOLUME 92.9 fl (82.0-101.0); MEAN PLATELET VOLUME 9.9 fl (7.4-10.4); MONOCYTE # 0.7 10^3/ul (0.3-0.9); MONOCYTES % 10.8 % (0.0-11.0); NEUTROPHIL # 3.9 10^3/ul (1.6-7.5); NEUTROPHILS % 57.6 % (39.0-77.0); PLATELET COUNT 183 10^3/UL (140-415); RED BLOOD COUNT 2.54 10^6/ul (4.70-6.10); RED CELL DISTRIBUTION WIDTH 13.9 % (11.5-14.5)
[2018-11-26] MEDS: PANTOPRAZOLE (EC) 40 MG TAB PO (05:39)
[2018-11-26] MEDS: CEFAZOLIN 1 GM/50 ML (PMX) 50 ML IVPB ×3 (05:39→21:38)
[2018-11-26] MEDS: ACETAMINOPHEN 500 MG TAB PO ×3 (05:39→21:38)
[2018-11-26 06:13] LABS: ANION GAP 3 (5-13); BLOOD UREA NITROGEN 8 mg/dl (7-20); CALCIUM 8.3 mg/dl (8.4-10.2); CARBON DIOXIDE 32 mmol/L (21-31); CHLORIDE 104 mmol/L (97-110); CREATININE 0.66 mg/dl (0.61-1.24); Estimated GFR > 60 mL/min (>60); GLUCOSE 95 mg/dl (70-220); POTASSIUM 3.8 mmol/L (3.5-5.1); SODIUM 139 mmol/L (135-144)
[2018-11-26] MEDS: SENNA/DOCUSATE NA (8.6MG/50MG) TAB PO (10:00)
[2018-11-26] MEDS: CHOLECALCIFEROL 1,000 UNIT TAB PO (10:00)
[2018-11-26] MEDS: ASPIRIN (EC) 81 MG TAB PO ×2 (10:00→21:38)
[2018-11-26] MEDS: GABAPENTIN 300 MG CAP PO (21:38)
[2018-11-26] MEDS: TAMSULOSIN (SR) 0.4 MG CAP PO (21:43)
[2018-11-27 05:20] LABS: ADD MAN DIFF? NO
[2018-11-27 05:32] LABS: BASOPHILS % 0.3 % (0.0-2.0); EOSINOPHILS # 0.2 10^3/ul (0.0-0.5); EOSINOPHILS % 3.7 % (0.0-7.0); HEMATOCRIT 24.3 % (42.0-52.0); HEMOGLOBIN 7.7 g/dl (14.0-18.0); LYMPHOCYTES # 1.7 10^3/ul (0.8-2.9); MEAN CORPUSCULAR HEMOGLOBIN 29.4 pg (29.0-33.0); MEAN CORPUSCULAR HGB CONC 31.7 g/dl (32.0-37.0); MEAN CORPUSCULAR VOLUME 92.7 fl (82.0-101.0); MEAN PLATELET VOLUME 9.8 fl (7.4-10.4); MONOCYTE # 0.7 10^3/ul (0.3-0.9); NEUTROPHIL # 3.5 10^3/ul (1.6-7.5); NEUTROPHILS % 56.9 % (39.0-77.0); PLATELET COUNT 204 10^3/UL (140-415); RED BLOOD COUNT 2.62 10^6/ul (4.70-6.10)
[2018-11-27 05:32] LABS: WHITE BLOOD COUNT 6.2 10^3/ul (4.8-10.8)
[2018-11-27 05:54] LABS: ANION GAP 4 (5-13); BLOOD UREA NITROGEN 8 mg/dl (7-20); CALCIUM 8.3 mg/dl (8.4-10.2); CARBON DIOXIDE 30 mmol/L (21-31); CHLORIDE 105 mmol/L (97-110); CREATININE 0.67 mg/dl (0.61-1.24); Estimated GFR > 60 mL/min (>60); GLUCOSE 105 mg/dl (70-220); POTASSIUM 3.9 mmol/L (3.5-5.1); SODIUM 139 mmol/L (135-144)
[2018-11-27] MEDS: PANTOPRAZOLE (EC) 40 MG TAB PO (06:04)
[2018-11-27] MEDS: ACETAMINOPHEN 500 MG TAB PO ×3 (06:04→22:09)
[2018-11-27] MEDS: CEFAZOLIN 1 GM/50 ML (PMX) 50 ML IVPB ×3 (06:04→22:10)
[2018-11-27] MEDS: ASPIRIN (EC) 81 MG TAB PO ×2 (08:44→22:09)
[2018-11-27] MEDS: CHOLECALCIFEROL 1,000 UNIT TAB PO (08:44)
[2018-11-27] MEDS: oxyCODONE 5 MG TAB PO (18:19)
[2018-11-27] MEDS: TAMSULOSIN (SR) 0.4 MG CAP PO (22:08)
[2018-11-27] MEDS: LOSARTAN 50 MG TAB PO (22:08)
[2018-11-27] MEDS: GABAPENTIN 300 MG CAP PO (22:08)
[2018-11-28] MEDS: CEFAZOLIN 1 GM/50 ML (PMX) 50 ML IVPB ×3 (05:51→21:57)
[2018-11-28] MEDS: ACETAMINOPHEN 500 MG TAB PO ×3 (05:53→22:01)
[2018-11-28] MEDS: PANTOPRAZOLE (EC) 40 MG TAB PO (05:54)
[2018-11-28 06:21] LABS: ADD MAN DIFF? NO
[2018-11-28 06:27] LABS: BASOPHILS % 0.6 % (0.0-2.0); EOSINOPHILS # 0.2 10^3/ul (0.0-0.5); EOSINOPHILS % 3.4 % (0.0-7.0); HEMOGLOBIN 7.8 g/dl (14.0-18.0); LYMPHOCYTES # 1.8 10^3/ul (0.8-2.9); LYMPHOCYTES % 28.3 % (15.0-51.0); MEAN CORPUSCULAR HEMOGLOBIN 29.2 pg (29.0-33.0); MEAN CORPUSCULAR HGB CONC 31.2 g/dl (32.0-37.0); MEAN CORPUSCULAR VOLUME 93.6 fl (82.0-101.0); MEAN PLATELET VOLUME 9.7 fl (7.4-10.4); MONOCYTE # 0.8 10^3/ul (0.3-0.9); MONOCYTES % 11.9 % (0.0-11.0); NEUTROPHIL # 3.5 10^3/ul (1.6-7.5); NEUTROPHILS % 54.5 % (39.0-77.0); PLATELET COUNT 221 10^3/UL (140-415); RED BLOOD COUNT 2.67 10^6/ul (4.70-6.10); RED CELL DISTRIBUTION WIDTH 14.2 % (11.5-14.5)
[2018-11-28 06:27] LABS: WHITE BLOOD COUNT 6.4 10^3/ul (4.8-10.8)
[2018-11-28 06:43] LABS: ANION GAP 3 (5-13); BLOOD UREA NITROGEN 9 mg/dl (7-20); CALCIUM 8.6 mg/dl (8.4-10.2); CARBON DIOXIDE 32 mmol/L (21-31); CHLORIDE 104 mmol/L (97-110); CREATININE 0.73 mg/dl (0.61-1.24); Estimated GFR > 60 mL/min (>60); GLUCOSE 91 mg/dl (70-220); SODIUM 139 mmol/L (135-144)
[2018-11-28] MEDS: ASPIRIN (EC) 81 MG TAB PO ×2 (08:56→21:57)
[2018-11-28] MEDS: LOSARTAN 50 MG TAB PO ×2 (08:56→22:02)
[2018-11-28] MEDS: CHOLECALCIFEROL 1,000 UNIT TAB PO (08:56)
[2018-11-28] MEDS: GABAPENTIN 300 MG CAP PO (21:57)
[2018-11-28] MEDS: TAMSULOSIN (SR) 0.4 MG CAP PO (22:04)
[2018-11-29 05:08] LABS: ADD MAN DIFF? NO
[2018-11-29 05:15] LABS: BASOPHILS % 0.4 % (0.0-2.0); EOSINOPHILS # 0.2 10^3/ul (0.0-0.5); EOSINOPHILS % 3.3 % (0.0-7.0); HEMOGLOBIN 7.7 g/dl (14.0-18.0); LYMPHOCYTES # 1.6 10^3/ul (0.8-2.9); MEAN CORPUSCULAR HEMOGLOBIN 28.9 pg (29.0-33.0); MEAN CORPUSCULAR HGB CONC 30.8 g/dl (32.0-37.0); MEAN PLATELET VOLUME 9.3 fl (7.4-10.4); MONOCYTE # 0.7 10^3/ul (0.3-0.9); MONOCYTES % 10.1 % (0.0-11.0); NEUTROPHIL # 4.4 10^3/ul (1.6-7.5); NEUTROPHILS % 63.1 % (39.0-77.0); PLATELET COUNT 253 10^3/UL (140-415); RED BLOOD COUNT 2.66 10^6/ul (4.70-6.10); RED CELL DISTRIBUTION WIDTH 14.2 % (11.5-14.5)
[2018-11-29 05:51] LABS: ANION GAP 4 (5-13); BLOOD UREA NITROGEN 9 mg/dl (7-20); CALCIUM 8.4 mg/dl (8.4-10.2); CARBON DIOXIDE 29 mmol/L (21-31); CHLORIDE 106 mmol/L (97-110); Estimated GFR > 60 mL/min (>60); GLUCOSE 93 mg/dl (70-220); POTASSIUM 3.9 mmol/L (3.5-5.1); SODIUM 139 mmol/L (135-144)
[2018-11-29] MEDS: CEFAZOLIN 1 GM/50 ML (PMX) 50 ML IVPB ×3 (05:56→20:46)
[2018-11-29] MEDS: PANTOPRAZOLE (EC) 40 MG TAB PO (05:56)
[2018-11-29] MEDS: ACETAMINOPHEN 500 MG TAB PO ×3 (05:57→20:45)
[2018-11-29] MEDS: CHOLECALCIFEROL 1,000 UNIT TAB PO (09:08)
[2018-11-29] MEDS: ASPIRIN (EC) 81 MG TAB PO ×2 (09:08→20:43)
[2018-11-29] MEDS: LOSARTAN 50 MG TAB PO ×2 (09:09→20:43)
[2018-11-29] MEDS: oxyCODONE 5 MG TAB PO ×2 (09:09→15:06)
[2018-11-29] MEDS: GABAPENTIN 300 MG CAP PO (20:43)
[2018-11-29] MEDS: TAMSULOSIN (SR) 0.4 MG CAP PO (20:46)
[2018-11-30] MEDS: ACETAMINOPHEN 500 MG TAB PO ×3 (05:40→21:43)
[2018-11-30] MEDS: PANTOPRAZOLE (EC) 40 MG TAB PO (05:40)
[2018-11-30] MEDS: CEFAZOLIN 1 GM/50 ML (PMX) 50 ML IVPB ×3 (05:40→22:38)
[2018-11-30] MEDS: oxyCODONE 5 MG TAB PO (06:22)
[2018-11-30] MEDS: ASPIRIN (EC) 81 MG TAB PO ×2 (09:09→20:43)
[2018-11-30] MEDS: CHOLECALCIFEROL 1,000 UNIT TAB PO (09:09)
[2018-11-30] MEDS: LOSARTAN 50 MG TAB PO ×2 (09:10→20:42)
[2018-11-30] MEDS: GABAPENTIN 300 MG CAP PO (20:41)
[2018-11-30] MEDS: TAMSULOSIN (SR) 0.4 MG CAP PO (20:46)
[2018-12-01] MEDS: MAGNESIUM HYDROXIDE 30ML CUP PO (02:16)
[2018-12-01] MEDS: PANTOPRAZOLE (EC) 40 MG TAB PO (05:07)
[2018-12-01] MEDS: CEFAZOLIN 1 GM/50 ML (PMX) 50 ML IVPB ×2 (05:09→14:33)
[2018-12-01] MEDS: ACETAMINOPHEN 500 MG TAB PO ×2 (05:39→14:33)
[2018-12-01] MEDS: ASPIRIN (EC) 81 MG TAB PO (09:18)
[2018-12-01] MEDS: CHOLECALCIFEROL 1,000 UNIT TAB PO (09:18)
[2018-12-01] MEDS: LOSARTAN 50 MG TAB PO (09:18)
[2018-12-01] MEDS: oxyCODONE 5 MG TAB PO (09:21)
[2018-12-01] MEDS: HYDROmorphONE 1 MG/ML SYG IV (14:32)
== END 2018-12-01 19:05 | DRG 464 ==
LOC: REC 05:53 → MS1 17:00
PROVIDERS: Orthopaedic Surgery Adult Reconstructive Orthopaedic Surgery
PROC: 0SPD0JZ Removal of Synthetic Substitute from Left Knee Joint, Open Approach (ICD-10-PCS; principal; 2018-11-22 07:30)
PROC: 0SHD08Z Insertion of Spacer into Left Knee Joint, Open Approach (ICD-10-PCS; 2018-11-22 07:30)
PROC: 0QNF0ZZ Release Left Patella, Open Approach (ICD-10-PCS; 2018-11-22 07:30)
PROC: 02HV33Z Insertion of Infusion Device into Superior Vena Cava, Percutaneous Approach (ICD-10-PCS; 2018-11-22 07:41)
DX: T84.54XA Infection and inflammatory reaction due to internal left knee prosthesis, initial encounter (principal); M00.062 Staphylococcal arthritis, left knee; T84.023A Instability of internal left knee prosthesis, initial encounter; B95.61 Methicillin susceptible Staphylococcus aureus infection as the cause of diseases classified elsewhere; I10 Essential (primary) hypertension; I95.9 Hypotension, unspecified; N40.0 Benign prostatic hyperplasia without lower urinary tract symptoms; R53.81 Other malaise; Y83.8 Other surgical procedures as the cause of abnormal reaction of the patient, or of later complication, without mention of misadventure at the time of the procedure; Z87.891 Personal history of nicotine dependence
CPT/HCPCS: 36569; 71045; 73560; 76937; 80048; 80202; 83605; 85014; 85018; 85025; 85651; 86140; 86850; 86900; 86901; 86920; 87040-91; 87070; 87075; 87086; 87102; 87116; 88304; 88311; 97110; 97116; 97162; 97165; 97530; 97535